=== PATIENT | male | born 1985 | race Caucasian/White ===

== ENCOUNTER 2018-08-11 14:08 | Emergency (ER) | payer BC, OTHER ==
[~2018-08-11] VITALS: Ht 172.7 cm; Wt 72.6 kg
[2018-08-11] MEDS ORDERED: ANTACID SUSP 30 ML UDC (MYLANTA) PO ONE (14:15)
[2018-08-11] MEDS ORDERED: ASPIRIN 81 MG CHEW (CHILDREN'S ASA) PO ONE (14:15)
[2018-08-11] MEDS ORDERED: NITROGLYCERIN 0.4 MG SL TABS BTL 25'S SL PRN (14:15)
[2018-08-11] MEDS ORDERED: LIDOCAINE 2% VISCOUS 15 ML UDC PO ONE (14:15)
--- NOTE | 2018-08-11 14:18 | ED Chest Pain ---
General Chief Complaint: Chest Pain Stated Complaint: CHEST PAIN Source: patient Exam Limitations: no limitations (STEVO SAVAGE APRN) History of Present Illness Date Seen by Provider: Aug 11, 2018 Time Seen by Provider: 14:16 Initial Comments tto ER with epigastric abdominal discomfort constant for 48 hours. No nausea or vomiting. Intermittent shortness of breath. He describes this pain as "hunger pains". He has been able to eat food in food intake does not affect the pain. No fevers or chills. Pain does not radiate. No history of this. No history of acid reflux. He is a nonsmoker. No personal history of heart disease and no immediate family history of heart attacks. Timing/Duration: constant Severity/Quality: moderate Location: epigastric Radiation: no radiation Activities at Onset: none ASA po HEADSTART TEACHER: No NTG SL HEADSTART TEACHER: No Associated Symptoms: No nausea/vomiting (STEVO SAVAGE APRN) Allergies and Home Medications Allergies Coded Allergies: No Known Drug Allergies (Unverified , 08/11/18) Patient Home Medication List Home Medication List Reviewed: Yes (STEVO SAVAGE APRN) Review of Systems Review of Systems Constitutional: see HPI EENTM: No Symptoms Reported Respiratory: See HPI, SOA With Exertion Cardiovascular: See HPI, Chest Pain Gastrointestinal: See HPI; Denies Diarrhea, Denies Nausea Musculoskeletal: no symptoms reported Skin: no symptoms reported Psychiatric/Neurological: No Symptoms Reported Endocrine: No Symptoms Reported (STEVO SAVAGE APRN) Physical Exam Vital Signs Vital Signs - First Documented 08/11/18 14:12 Temp 98.3 Pulse 82 Resp 20 B/P (MAP) 160/104 (122) Pulse Ox 97 O2 Delivery Room Air (IRA ABREU MD) Vital Signs Capillary Refill : (STEVO SAVAGE APRN) Height, Weight, BMI Height: '" Weight: lbs. oz. kg; BMI Method: General Appearance: No Apparent Distress, WD/WN HEENT: PERRL/EOMI, TMs Normal Respiratory: Chest Non Tender, Lungs Clear, Normal Breath Sounds, No Accessory Muscle Use, No Respiratory Distress Cardiovascular: Regular Rate, Rhythm, Normal Peripheral Pulses Gastrointestinal: Normal Bowel Sounds, Non Tender, Soft Neurologic/Psychiatric: Alert, Oriented x3 Skin: Normal Color, Warm/Dry (STEVO SAVAGE APRN) Progress/Results/Core Measures Results/Orders Lab Results Laboratory Tests Test 08/11/18 14:20 Range/Units White Blood Count 7.2 4.3-11.0 10^3/uL Red Blood Count 5.40 4.35-5.85 10^6/uL Hemoglobin 17.0 13.3-17.7 G/DL Hematocrit 46 40-54 % Mean Corpuscular Volume 86 80-99 FL Mean Corpuscular Hemoglobin 32 25-34 PG Mean Corpuscular Hemoglobin Concent 37 H 32-36 G/DL Red Cell Distribution Width 12.5 10.0-14.5 % Platelet Count 330 130-400 10^3/uL Mean Platelet Volume 9.1 7.4-10.4 FL Neutrophils (%) (Auto) 71 42-75 % Lymphocytes (%) (Auto) 20 12-44 % Monocytes (%) (Auto) 9 0-12 % Eosinophils (%) (Auto) 0 0-10 % Basophils (%) (Auto) 0 0-10 % Neutrophils # (Auto) 5.1 1.8-7.8 X 10^3 Lymphocytes # (Auto) 1.5 1.0-4.0 X 10^3 Monocytes # (Auto) 0.6 0.0-1.0 X 10^3 Eosinophils # (Auto) 0.0 0.0-0.3 10^3/uL Basophils # (Auto) 0.0 0.0-0.1 10^3/uL D-Dimer 0.20 0.00-0.49 UG/ML Sodium Level 140 135-145 MMOL/L Potassium Level 3.6 3.6-5.0 MMOL/L Chloride Level 102 98-107 MMOL/L Carbon Dioxide Level 26 21-32 MMOL/L Anion Gap 12 5-14 MMOL/L Blood Urea Nitrogen 11 7-18 MG/DL Creatinine 1.11 0.60-1.30 MG/DL Estimat Glomerular Filtration Rate > 60 BUN/Creatinine Ratio 10 Glucose Level 119 H 70-105 MG/DL Calcium Level 9.8 8.5-10.1 MG/DL Corrected Calcium 8.5-10.1 MG/DL Magnesium Level 2.1 1.8-2.4 MG/DL Total Bilirubin 0.8 0.1-1.0 MG/DL Aspartate Amino Transf (AST/SGOT) 19 5-34 U/L Alanine Aminotransferase (ALT/SGPT) 30 0-55 U/L Alkaline Phosphatase 65 40-136 U/L Myoglobin 44.6 10.0-92.0 NG/ML Troponin I < 0.30 <0.30 NG/ML Total Protein 8.0 6.4-8.2 GM/DL Albumin 4.6 H 3.2-4.5 GM/DL Lipase 30 8-78 U/L (IRA ABREU MD) My Orders Orders - IRA ABREU MD Cbc With Automated Diff (08/11/18 14:11) Magnesium (08/11/18 14:11) Chest 1 View, Ap/Pa Only (08/11/18 14:11) Ekg Tracing (08/11/18 14:11) Cardiac Profile 1 (08/11/18 14:11) Comprehensive Metabolic Panel (08/11/18 14:11) Myoglobin Serum (08/11/18 14:11) O2 (08/11/18 14:11) Monitor-Rhythm Ecg Trace Only (08/11/18 14:11) Lipid Panel (08/12/18 06:00) Saline Lock/Iv-Start (08/11/18 14:11) Aspirin Chewable Tablet (Baby Aspirin Ch (08/11/18 14:15) Ketorolac Injection (Toradol Injection) (08/11/18 14:58) Fibrin Degradation Products (08/11/18 14:58) Ns Iv 1000 Ml (Sodium Chloride 0.9%) (08/11/18 14:59) (IRA ABREU MD) Medications Given in ED Current Medications Medications Dose Ordered Sig/Sintia Route Start Time Stop Time Status Last Admin Dose Admin Al Hydrox/Mg Hydrox/Simethicone 30 ml ONCE ONCE PO 08/11/18 14:15 08/11/18 14:17 DC 08/11/18 14:27 30 ML Aspirin 324 mg ONCE ONCE PO 08/11/18 14:15 08/11/18 14:16 DC 08/11/18 14:27 324 MG Lidocaine HCl 5 ml ONCE ONCE PO 08/11/18 14:15 08/11/18 14:17 DC 08/11/18 14:27 5 ML Sodium Chloride 1,000 ml @ 0 mls/hr Q0M ONCE IV 08/11/18 14:59 08/11/18 15:00 DC 08/11/18 15:05 1,000 MLS/HR (IRA ABREU MD) Vital Signs/I&O 08/11/18 08/11/18 08/11/18 08/11/18 14:12 14:25 14:27 15:04 Temp 98.3 98.3 98.3 Pulse 82 Resp 20 B/P (MAP) 160/104 (122) Pulse Ox 97 O2 Delivery Room Air Room Air (IRA ABREU MD) Progress Progress Note : Progress Note 1455: I have seen and evaluated the patient and agree with above except as indicated. I have reviewed and agree with the plan of care. Patient has central chest discomfort in the region of the xiphoid that he describes as 9 hunger pains. This is been going on since Saturday morning. He had the pain overnight and had to sleep on the couch due to the pain. This did help a little bit but the pain continues today. Denies nausea or vomiting. Labs and x -ray reviewed. I have added d-dimer as the patient is slightly tachycardic in the range of the 80s on my exam. We will also give 1 L normal saline. Toradol 30 mg IV. Monitor patient. 1625: Overall improved. We did discuss that this does not appear to be hard or blood clot related but may be stomach related and he is to follow-up with a surgeon for further evaluation including possible endoscopy. He can follow-up with his doctor as well. I will send a copy of the chart the Dr. Bennett. He is instructed to initiate [id number] omeprazole and can have outpatient cardiology follow-up if indicated. Patient agreed. Discharged home with return precautions. Patient verbalize understanding instructions and agreement with plan. (IRA ABREU MD) Initial ECG Impression Date: Aug 11, 2018 Initial ECG Impression Time: 14:15 Initial ECG Rate: 71 Initial ECG Rhythm: Normal Sinus Initial ECG Comparisson: No Previous ECG Available Comment Sinus rhythm with PVC. Normal axis. No evidence of ST elevation HI. No previous available for comparison. Interpreted by me. (IRA ABREU MD) Diagnostic Imaging Diagonstic Imaging: Xray Plain Films/CT/US/NM/MRI: chest Comments [facility]IA [facility]. [place], [place] NAME: MILLY CAMPBELL [facility] REC#: [id number] PT STATUS: REG ER : 1985 PHYSICIAN: IRA ABREU MD ADMIT DATE: 08/11/18/ER Draft Date of Exam:08/11/18 CHEST 1 VIEW, AP/PA ONLY INDICATION: Chest pain. EXAMINATION: Portable chest at 2:34 PM. FINDINGS: The heart size and pulmonary vascularity are normal. The lungs are clear. There are no effusions or pneumothoraces. IMPRESSION: Negative chest. Dictated on workstation # [id number] Dict: 08/11/18 1451 Trans: 08/11/18 1453 [id number] Interpreted by: IRA GEE MD Electronically signed by: (IRA ABREU MD) Departure Impression Primary Impression: Epigastric abdominal pain Additional Impression: Chest pain Qualified Codes: R07.9 - Chest pain, unspecified Disposition: 01 HOME, SELF-CARE Condition: Improved Departure-Patient Inst. Decision time for Depature: 16:26 (IRA ABREU MD) Referrals: RANJEET BENNETT DO (PCP) Primary Care Physician LINDA WAHL BRETT D DO JENKINS, XAVIER M MD KIDO, TAKAAKI MD Patient Instructions: Chest Pain (DC), Gastric Ulcer (DC) Add. Discharge Instructions: All discharge instructions reviewed with patient and/or family. Voiced understanding. You should start [id number] omeprazole 20 mg take one tab daily for 2 weeks. You may extend this to 6 weeks if needed. You should follow-up with a surgeon listed or of your choice for further evaluation to include possible upper endoscopy (scope). Eat a light diet and avoid spicy foods for the next several days at least. Follow-up with your doctor this week for recheck and further evaluation. Return for worsening, fever, vomiting, weakness, breathing problems, chest pain, sweating or other concerns as needed. Images Torso/Trunk 1 - Other-See Progress Note (STEVO SAVAGE APRN) Copy Copies To 1: RANJEET BENNETT PETER J APRN Aug 11, 2018 14:18 IRA ABREU MD Aug 11, 2018 15:08
[2018-08-11 14:27] LABS: BASOPHILS % (AUTO) 0 % (0-10); EOSINOPHILS % (AUTO) 0 % (0-10); HEMATOCRIT 46 % (40-54); LYMPHOCYTES # (AUTO) 1.5 X 10^3 (1.0-4.0); LYMPHOCYTES % (AUTO) 20 % (12-44); MEAN CORPUSCULAR HEMOGLOBIN 32 PG (25-34); MEAN CORPUSCULAR HGB CONC 37 G/DL (32-36); MEAN CORPUSCULAR VOLUME 86 FL (80-99); MEAN PLATELET VOLUME 9.1 FL (7.4-10.4); MONOCYTES # (AUTO) 0.6 X 10^3 (0.0-1.0); MONOCYTES % (AUTO) 9 % (0-12); NEUTROPHILS # (AUTO) 5.1 X 10^3 (1.8-7.8); NEUTROPHILS % (AUTO) 71 % (42-75); PLATELET COUNT 330 10^3/uL (130-400); RED CELL DISTRIBUTION WIDTH 12.5 % (10.0-14.5); WHITE BLOOD COUNT 7.2 10^3/uL (4.3-11.0)
[2018-08-11 14:45] LABS: ALANINE AMINOTRANSFERASE 30 U/L (0-55); ALBUMIN 4.6 GM/DL (3.2-4.5); ALKALINE PHOSPHATASE 65 U/L (40-136); BILIRUBIN,TOTAL 0.8 MG/DL (0.1-1.0); BUN/CREATININE RATIO 10; CALCIUM 9.8 MG/DL (8.5-10.1); CARBON DIOXIDE 26 MMOL/L (21-32); CHLORIDE 102 MMOL/L (98-107); CREATININE SERUM 1.11 MG/DL (0.60-1.30); GFR ESTIMATED > 60; GLUCOSE 119 MG/DL (70-105); MAGNESIUM 2.1 MG/DL (1.8-2.4); POTASSIUM 3.6 MMOL/L (3.6-5.0); SODIUM 140 MMOL/L (135-145)
[2018-08-11 14:52] LABS: MYOGLOBIN SERUM 44.6 NG/ML (10.0-92.0)
--- NOTE | 2018-08-11 14:53 | Diagnostic Imaging Report ---
INDICATION: Chest pain. EXAMINATION: Portable chest at 2:34 PM. FINDINGS: The heart size and pulmonary vascularity are normal. The lungs are clear. There are no effusions or pneumothoraces. IMPRESSION: Negative chest. Dictated by: Dictated on workstation # [id number]
[2018-08-11] MEDS ORDERED: KETOROLAC 30 MG/ML VIAL IVP STA (14:58)
[2018-08-11] MEDS ORDERED: NS IV 1000 ML 1,000 ML IV ONE (14:59)
[2018-08-11 16:44] VITALS: BP 128/93
== END 2018-08-11 16:45 | disposition home or self-care (01) ==
LOC: EDUNIT# 14:08 → ER 14:08
DX: R10.13 Epigastric pain (principal); R07.9 Chest pain, unspecified
CPT/HCPCS: 36415; 71045; 80053; 83690; 83735; 83874; 84484; 85025; 85379; 93005; 93041

== ENCOUNTER 2018-08-22 06:29 | Outpatient (CLI) | payer BC ==
[~2018-08-22] VITALS: Ht 172.7 cm; Wt 78.5 kg
[2018-08-22] MEDS ORDERED: OMEP20TA7 PO (10:28)
== END 2018-08-22 10:30 | disposition home or self-care (01) ==
LOC: PREOP 06:29
PROVIDERS: ATTEND Surgery
DX: Z01.818 Encounter for other preprocedural examination (principal)

== ENCOUNTER 2018-08-26 11:49 | Day surgery (SDC) | payer BC ==
[~2018-08-26] VITALS: Ht 172.7 cm; Wt 78.5 kg
[~2018-08-26 11:49] MED LIST: OMEP20TA7 PO
[2018-08-26] MEDS ORDERED: NS IV 500 ML 500 ML IV PRN (12:03)
[2018-08-26] MEDS ORDERED: NS IV 500 ML 500 ML ONE (12:08)
[2018-08-26] MEDS ORDERED: fentaNYL INJECTION 100 MCG/2 ML AMP IVP ONE (12:15)
[2018-08-26] MEDS ORDERED: HURRICAINE EXT TUBE (BENZOCAINE) XX PRN (12:15)
[2018-08-26] MEDS ORDERED: MIDAZOLAM 2 MG/2 ML (VERSED) VIAL IVP ONE (12:15)
[2018-08-26 12:33] VITALS: BP 140/94
[2018-08-26] MEDS ORDERED: LIDOCAINE JELLY 2% 6 ML SYRINGE ONE (13:10)
[2018-08-26] MEDS ORDERED: fentaNYL INJECTION 100 MCG/2 ML AMP ONE (13:10)
[2018-08-26] MEDS ORDERED: HURRICAINE EXT TUBE (BENZOCAINE) ONE (13:11)
[2018-08-26] MEDS ORDERED: MIDAZOLAM 2 MG/2 ML (VERSED) VIAL ONE ×5 (13:11→13:30)
[2018-08-26 13:55] VITALS: BP 124/72
[2018-08-26] MEDS ORDERED: LIDOCAINE JELLY 2% 6 ML SYRINGE TOP ONE (14:00)
--- NOTE | 2018-08-26 14:10 | Conscious Sedation/ASA ---
Conscious Sedation Pre-Proced Time 13:00 ASA Score 2 For ASA 3 and 4: Consider anesthesia and medical clearance. Also, for patients with a history of failed moderate sedation consider anesthesia. Airway Lungs Heart ASA score ASA 1: a normal healthy patient ASA 2: a patient with a mild systemic disease (mid diabetes, controlled hypertension, obesity ASA 3: a patient with a severe systemic disease that limits activity (angina , COPD, prior Myocardial infarction) ASA 4: a patient with an incapacitating disease that is a constant threat to life (CHF, renal failure) ASA 5: a moribund patient not expected to survive 24 hrs. (ruptured aneurysm) ASA 6: a declared brain patient whose organs are being harvested. For emergent operations, add the letter E after the classification Mallampati Classification Grade 2 Sedation Plan Analgesia, Amnesia, Plan communicated to team members, Discussed options with patient/fam, Discussed risks with patient/fam The patient is an appropriate candidate to undergo the planned procedure, sedation, and anesthesia. The patient immediately re-assessed prior to indication. DAVID BUTLER MD Aug 26, 2018 14:10
--- NOTE | 2018-08-26 14:12 | Progress Note-Pre Operative ---
Pre-Operative Progress Note H&P Reviewed The H&P was reviewed, patient examined and no changes noted. Date Seen by Provider: Aug 26, 2018 Time Seen by Provider: 13:00 Date H&P Reviewed: Aug 26, 2018 Time H&P Reviewed: 13:00 Pre-Operative Diagnosis: DAVID MUNOZ MD Aug 26, 2018 14:12
[2018-08-26] MEDS ORDERED: HYDROcodone/APAP 5 MG/325 MG (LORTAB) TAB PO PRN (14:15)
[2018-08-26] MEDS ORDERED: ACETAMINOPHEN 325 MG TABLET PO PRN (14:15)
[2018-08-26] MEDS ORDERED: morphine INJ 10 MG/ML 1ML (SYR OR VIAL) IV PRN (14:15)
[2018-08-26] MEDS ORDERED: ONDANSETRON 4 MG/2 ML (SDV) Z0FRAN IV PRN (14:15)
--- NOTE | 2018-08-26 14:18 | Progress Note-Post Operative ---
Post-Operative Progess Note Surgeon (s)/Gauge Machine Operator (s) Surgeon DAVID BUTLER MD Gauge Machine Operator: none Pre-Operative Diagnosis GERD Post-Operative Diagnosis reflux esophagitis(stage 2), small HH(1.5), moderate gastritis. Procedure & Operative Findings Date of Procedure 08/26/18 Procedure Performed/Findings EGD with bx. Anesthesia Type CS Estimated Blood Loss Estimated blood loss (mL): minimal Specimens/Packing Specimens Removed GE jxn, antrum DAVID BUTLER MD Aug 26, 2018 14:18
[2018-08-26] MEDS ORDERED: PANT40TA2 PO (14:19)
--- NOTE | 2018-08-26 14:20 | Discharge Inst-Surgical ---
D/C Lap Instructions-KIDO New, Converted, or Re-Newed RX: RX on Chart Follow Up PRN Activity as tolerated High Fiber Diet 25g or more per day Avoid Alcohol, Caffeine, Spicy [place] and Acid foods. Drink 64 fluid oz or more of fluids per day. Symptoms to Report: Fever over 101 degree F, Nausea/Vomiting If any problems/questions: Contact your physician or go to Emergency Room DAVID BUTLER MD Aug 26, 2018 14:20
[2018-08-26 14:25] VITALS: BP 125/77
[2018-08-26 15:10] VITALS: BP 125/77
--- NOTE | 2018-08-26 15:52 | OPERATIVE REPORT ---
DATE OF SERVICE: 08/26/2018 ATTENDING PRIMARY CARE PHYSICIAN: Dr. Bennett. PREOPERATIVE DIAGNOSIS: Gastroesophageal reflux disease. POSTOPERATIVE DIAGNOSES: Reflux esophagitis stage II, small hiatal hernia approximately 1.5 cm in size, moderate gastritis with a small superficial erosions throughout the antrum of the stomach, pylorus and duodenum appeared normal. PROCEDURE: EGD with biopsy. SURGEON: David Butler MD ANESTHESIA: Conscious sedation. ESTIMATED BLOOD LOSS: Minimal. FINDINGS: Reflux esophagitis stage II, small hiatal hernia 1.5 cm in size, moderate severity gastritis towards the stomach antrum with multiple small erosions consistent with a significant gastritis. No formal ulcerations. The pylorus and duodenum appeared normal with no distal obstructions. DISPOSITION: The patient tolerated the procedure well. INDICATIONS: The patient is a 33-year-old male with epigastric burning sensation. He reports that he has had milder episodes multiple times in the past; however, approximately 3 weeks ago, he had a severe episode, which caused shortness of breath and he went to the Emergency Department where a cardiac workup was performed and found not to be negative. He reports that he has had some issues with reflux and regurgitation; however, this has not been severe. 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 He does drink a significant amount of caffeinated beverages as well. He does not smoke or take in alcohol. DESCRIPTION OF PROCEDURE: The patient was brought to the endoscopy suite, laid in the left lateral decubitus position. After adequate IV pain and sedating medications and conscious sedation anesthesia, the mouthpiece was applied. Endoscope was placed in the mouth, visualizing the pharynx and hypopharyngeal region. Vocal cords, epiglottis and vallecula identified and appeared to normal. The endoscope was then gently intubated in the esophageal opening and esophagus insufflated. The endoscope was then advanced through the first, second and third portions of the esophagus at the level of the GE junction, a reflux esophagitis, stage 2 identified. There were no ulcers or strictures identified in this region. A biopsy was taken with forceps with visualization of good hemostasis. The endoscope was then advanced in the stomach and endoscope retroflexed, visualizing a small hiatal hernia approximately 1.5 cm in size. There was also moderate severity gastritis, which was with multiple prepyloric erosions consistent with hyperacidemia. There were no formal ulcerations. A biopsy was taken of one of these areas with forceps with visualization of good hemostasis. The endoscope was then advanced to the pylorus, into the first and second portion of the duodenum, which appeared normal with no ulcers or any distal obstructions. The endoscope was then slowly withdrawn with taking a second look and suctioning of residual air with no additional findings. The patient tolerated the procedure well. It appears that he does have hyperacidemia most likely secondary to stress mediated as well as caffeinated beverages as risk factors. We will recommend conservative management with the necessary lifestyle and diet accommodation including small and more frequent meals, avoidance of eating at night as well as head elevation while lying supine. He will also need to proceed with a caffeine cessation as well as stress management techniques. We will proceed with a trial of pantoprazole 40 mg daily as well. Job ID: [id number] DocumentID: [id number] Dictated Date: 08/26/2018 13:48:42 Toy Maker Date: 08/26/2018 15:52:34 Dictated By: DAVID BUTLER MD
== END 2018-08-26 15:10 | disposition home or self-care (01) ==
LOC: ENDO 11:49
PROVIDERS: ATTEND Surgery
DX: K21.0 Gastro-esophageal reflux disease with esophagitis (principal); K44.9 Diaphragmatic hernia without obstruction or gangrene; K29.70 Gastritis, unspecified, without bleeding

== ENCOUNTER 2019-03-05 06:35 | Emergency (ER) | payer BC ==
[~2019-03-05] VITALS: Ht 172.7 cm; Wt 74.8 kg
[~2019-03-05 06:35] MED LIST changes: +PANT40TA2 PO
--- NOTE | 2019-03-05 06:45 | NUR ---
pt here by self. pt alert gcs 15. in que pt shortly after me. pt got a rash left arm last noc. pt now says rash is on right leg and also c/o its on the " genital area". pt says genital area ios swollen as well. relates rash itches. pt denies pain. denies dyspnea and no acute sighns of dyspnea noted. i did not assess rash or the genital area. done que robert at 0651.
--- NOTE | 2019-03-05 06:57 | NUR ---
ua to lab by
--- NOTE | 2019-03-05 07:00 | ED General ---
General Stated Complaint: SCROTUM RED & SWOLLEN Source of Information: Patient Exam Limitations: No Limitations History of Present Illness Date Seen by Provider: Mar 05, 2019 Time Seen by Provider: 06:40 Initial Comments This 34-year-old gentleman presents to the emergency room with a pruritic, swollen, erythematous rash involving his extremities and genitals that started yesterday. He has been clearing out brush on his property. The penis and scrotum are significantly swollen. They are very itchy but not painful. Allergies and Home Medications Allergies Coded Allergies: No Known Drug Allergies (Unverified , 08/22/18) Home Medications Pantoprazole Sodium 40 Mg Tablet.dr, 40 MG PO DAILY Prescribed by: DAVID BUTLER on 08/26/18 1419 Prednisone 10 Mg Tab.ds.pk, 10 MG PO UD Take 4 daily for 3 days, then 2 daily for 3 days, then 1 daily x 3 days. Prescribed by: PAUL LACEY on 03/05/19 0701 Patient Home Medication List Home Medication List Reviewed: Yes Review of Systems Review of Systems Constitutional: no symptoms reported EENTM: no symptoms reported Respiratory: no symptoms reported Cardiovascular: no symptoms reported Gastrointestinal: no symptoms reported Genitourinary: see HPI Musculoskeletal: no symptoms reported Skin: see HPI Psychiatric/Neurological: No Symptoms Reported Hematologic/Lymphatic: No Symptoms Reported Immunological/Allergic: see HPI Past Uilxqxm-Hbzbfh-Mkkltf Hx Past Med/Social Hx: Reviewed and Corrections made Patient Social History Type Used: Cigarettes Recent Foreign Travel: No Contact w/Someone Who Travel: No Recent Hopitalizations: No Seasonal Allergies Seasonal Allergies: No Past Medical History Surgeries: No Respiratory: No Cardiac: No Neurological: No Reproductive Disorders: No Sexually Transmitted Disease: No HIV/AIDS: No Genitourinary: No Gastrointestinal: No Gastroesophageal Reflux Musculoskeletal: No Endocrine: No HEENT: No Loss of Vision: Bilateral Hearing Impairment: Denies Cancer: No Psychosocial: No Integumentary: No Adverse Reaction/Blood Tranf: No Physical Exam Vital Signs Vital Signs - First Documented 03/05/19 06:45 Temp 97.7 Pulse 76 Resp 16 B/P (MAP) 142/100 (114) Pulse Ox 95 O2 Delivery Room Air Capillary Refill : Height, Weight, BMI Height: 5'8.00" Weight: 173lbs. 0.0oz. 78.263734dr; 26.3 BMI Method:Stated General Appearance: No Apparent Distress, WD/WN HEENT: PERRL/EOMI, Normal ENT Inspection Respiratory: Lungs Clear, Normal Breath Sounds, No Accessory Muscle Use Cardiovascular: Regular Rate, Rhythm, No Edema, No Murmur Extremity: Normal Inspection, No Pedal Edema Neurologic/Psychiatric: Alert, Oriented x3, No Motor/Sensory Deficits, Normal Mood/Affect, auto body painter II-XII Norm as Tested Skin: Warm/Dry, Rash (slightly raised pruritic erythematous patchy rash on the extremities, penis, and scrotum) Progress/Results/Core Measures Suspected Sepsis SIRS Temperature: Pulse: Respiratory Rate: Blood Pressure / Mean: Results/Orders Lab Results Laboratory Tests Test 03/05/19 06:57 Range/Units Urine Color YELLOW Urine Clarity CLEAR Urine pH 5 5-9 Urine Specific Lopez 1.025 H 1.016-1.022 Urine Protein NEGATIVE NEGATIVE Urine Glucose (UA) NEGATIVE NEGATIVE Urine Ketones NEGATIVE NEGATIVE Urine Nitrite NEGATIVE NEGATIVE Urine Bilirubin NEGATIVE NEGATIVE Urine Urobilinogen NORMAL NORMAL MG/DL Urine Leukocyte Esterase NEGATIVE NEGATIVE Urine RBC (Auto) 2+ H NEGATIVE Urine RBC 0-2 /HPF Urine WBC RARE /HPF Urine Squamous Epithelial Cells RARE /HPF Urine Crystals NONE /LPF Urine Bacteria NEGATIVE /HPF Urine Casts PRESENT /LPF Urine Hyaline Casts RARE /LPF Urine Mucus NEGATIVE /LPF Urine Culture Indicated NO My Orders Orders - PAUL YE MD Ua Culture If Indicated (03/05/19 06:40) Vital Signs/I&O 03/05/19 03/05/19 06:45 07:15 Temp 97.7 97.7 Pulse 76 76 Resp 16 16 B/P (MAP) 142/100 (114) 142/100 (114) Pulse Ox 95 95 O2 Delivery Room Air Room Air Capillary Refill : Departure Impression Primary Impression: Allergic dermatitis due to poison anabel Disposition: 01 HOME, SELF-CARE Condition: Improved Departure-Patient Inst. Decision time for Depature: 06:50 Referrals: RANJEET WINCHESTER DO (PCP/Family) Primary Care Physician Patient Instructions: Poison Anabel Add. Discharge Instructions: Complete the entire prednisone taper to calm down the poison anabel. Finishing out the entire 9 days will help prevent rebound symptoms. Take prednisone early in the day with food or milk to avoid stomach upset and continue your antacid medication. You may use topical anti-itch products such as lidocaine spray or lotion, topical Benadryl (diphenhydramine), hydrocortisone cream, calamine, etc. A cool cloth or ice may also help. You may use antihistamines as well. Nondrowsy antihistamines may include loratadine (generic Claritin) or cetirizine (generic Zyrtec). Alternatively, Benadryl (diphenhydramine) may be used but may cause drowsiness. Benadryl may be helpful to take at night. Return to care if you have worsening problems or concerns. Scripts Prednisone (Prednisone) 10 Mg Tab.ds.pk 10 MG PO UD, #21 EA Take 4 daily for 3 days, then 2 daily for 3 days, then 1 daily x 3 days. Prov: PAUL YE MD 03/05/19 PAUL YE MD Mar 05, 2019 07:00
[2019-03-05] MEDS ORDERED: PRED10TA22 PO (07:01)
[2019-03-05 07:02] LABS: BILIRUBIN,URINE NEGATIVE (NEGATIVE); CLARITY,URINE CLEAR; COLOR,URINE YELLOW; GLUCOSE, URINE (UA) NEGATIVE (NEGATIVE); KETONES,URINE NEGATIVE (NEGATIVE); LEUKOCYTE ESTERASE ,URINE NEGATIVE (NEGATIVE); NITRITE,URINE NEGATIVE (NEGATIVE); PH,URINE 5 (5-9); PROTEIN,URINE NEGATIVE (NEGATIVE); UROBILINOGEN,URINE NORMAL (NORMAL)
[2019-03-05 07:13] LABS: BACTERIA,URINE NEGATIVE /HPF; HYALINE CASTS, URINE RARE /LPF; RBC,URINE 0-2 /HPF; SQUAMOUS EPITHELIAL CELL,UR RARE /HPF; WBC,URINE RARE /HPF
[2019-03-05 07:15] VITALS: BP 142/100
--- NOTE | 2019-03-05 07:15 | NUR ---
d/c instructions to pt. told to read all papers. paper script given. pt left ambulatory by self. pt knows f/u. i went over the handtyped by information on the chart. pt had no iv.
== END 2019-03-05 07:15 | disposition home or self-care (01) ==
LOC: EDUNIT# 06:35 → ER 06:39
DX: L23.7 Allergic contact dermatitis due to plants, except food (principal); K21.9 Gastro-esophageal reflux disease without esophagitis; Z79.52 Long term (current) use of systemic steroids
CPT/HCPCS: 81000

== ENCOUNTER 2020-09-19 13:55 | Emergency (ER) | payer SELFPAY ==
[~2020-09-19] VITALS: Ht 172.8 cm; Wt 81.6 kg
[~2020-09-19 13:55] MED LIST changes: +PRED10TA22 PO
[2020-09-19] MEDS ORDERED: ASPIRIN 81 MG CHEW (CHILDREN'S ASA) PO ONE (14:15)
[2020-09-19] MEDS ORDERED: FAMOTIDINE 20MG/2ML IV (PEPCID) IV STA (14:23)
--- NOTE | 2020-09-19 14:25 | ED Chest Pain ---
General Chief Complaint: Chest Pain Stated Complaint: CHEST PAIN AND HEAVYNESS Nursing Triage Note: PT AMBULATE TO ROOM 05 WITH C/O CHEST PAIN AND PRESSURE X2 DAYS. PT REPORTS PAIN WAS WORSE LAST NIGHT AND HE CALLED PCP THIS MORNING. PT REPORTS PCP INSTRUCTED PT TO COME TO ED. PT REPORTS HX OF CHEST PAIN RELATED TO HIS GALLBLADDER. PT REPORTS PAIN IS WORSE WHEN HE MOVES HIS ARMS CLOSE TOGETHER. Nursing Sepsis Screen: No Definite Risk Source: patient Exam Limitations: no limitations History of Present Illness Date Seen by Provider: Sep 19, 2020 Time Seen by Provider: 14:23 Initial Comments To ER with reports of central chest pain described as pressure for 2 days. Is better when his arms are flexed across his chest and worse when they are extended out. No shortness of breath no fever no chills no cough. No palpitations or lightheadedness. Timing/Duration: changing over time Severity/Quality: moderate Radiation: no radiation Activities at Onset: none ASA po GRATED CHEESE MAKER: No NTG SL GRATED CHEESE MAKER: No Associated Symptoms: denies symptoms Allergies and Home Medications Allergies Coded Allergies: No Known Drug Allergies (Unverified , 08/22/18) Home Medications Pantoprazole Sodium 40 Mg Tablet.dr, 40 MG PO DAILY Prescribed by: DAVID BUTLER on 08/26/18 1419 Prednisone 10 Mg Tab.ds.pk, 10 MG PO UD Take 4 daily for 3 days, then 2 daily for 3 days, then 1 daily x 3 days. Prescribed by: PAUL LACEY on 03/05/19 0701 Patient Home Medication List Home Medication List Reviewed: Yes Review of Systems Review of Systems Constitutional: see HPI EENTM: No Symptoms Reported Respiratory: See HPI Cardiovascular: See HPI, Chest Pain Gastrointestinal: No Symptoms Reported Genitourinary: No Symptoms Reported Musculoskeletal: no symptoms reported Skin: no symptoms reported Psychiatric/Neurological: No Symptoms Reported Endocrine: No Symptoms Reported Hematologic/Lymphatic: No Symptoms Reported Past Ccncpmy-Xnmyif-Gunhlp Hx Patient Social History Alcohol Use: Denies Use Recreational Drug Use: No Smoking Status: Never a Smoker Type Used: Cigarettes 2nd Hand Smoke Exposure: No Recent Foreign Travel: No Contact w/Someone Who Travel: No Recent Infectious Disease Expo: No Recent Hopitalizations: No Physical Abuse: No Sexual Abuse: No Mistreated: No Fear: No Seasonal Allergies Seasonal Allergies: No Past Medical History Surgeries: Yes (PILONIDAL CYST) Respiratory: No Cardiac: No Neurological: No Reproductive Disorders: No Sexually Transmitted Disease: No HIV/AIDS: No Genitourinary: No Gastrointestinal: Yes Gastroesophageal Reflux Musculoskeletal: No Endocrine: No HEENT: No Loss of Vision: Bilateral Hearing Impairment: Denies Cancer: No Psychosocial: No Integumentary: No Blood Disorders: No Adverse Reaction/Blood Tranf: No Physical Exam Vital Signs Vital Signs - First Documented 09/19/20 14:09 Temp 35.6 Pulse 82 Resp 17 B/P (MAP) 156/101 (119) O2 Delivery Room Air Capillary Refill : Less Than 3 Seconds Height, Weight, BMI Height: 5'8.00" Weight: 165lbs. 0.0oz. 74.976259xg; 27.00 BMI Method:Stated General Appearance: No Apparent Distress, WD/WN Neck: Full Range of Motion, Normal Inspection Respiratory: Normal Breath Sounds, No Accessory Muscle Use, No Respiratory Distress Cardiovascular: Regular Rate, Rhythm, Normal Peripheral Pulses Gastrointestinal: Normal Bowel Sounds, Non Tender, Soft Extremity: Normal Capillary Refill, Normal Inspection Neurologic/Psychiatric: Alert, Oriented x3 Skin: Normal Color, Warm/Dry Progress/Results/Core Measures Results/Orders Lab Results Laboratory Tests Test 09/19/20 14:19 Range/Units White Blood Count 7.7 4.3-11.0 10^3/uL Red Blood Count 5.45 4.30-5.52 10^6/uL Hemoglobin 17.1 13.3-17.7 g/dL Hematocrit 48 40-54 % Mean Corpuscular Volume 88 80-99 fL Mean Corpuscular Hemoglobin 31 25-34 pg Mean Corpuscular Hemoglobin Concent 36 32-36 g/dL Red Cell Distribution Width 12.1 10.0-14.5 % Platelet Count 315 130-400 10^3/uL Mean Platelet Volume 8.8 L 9.0-12.2 fL Immature Granulocyte % (Auto) 0 % Neutrophils (%) (Auto) 57 42-75 % Lymphocytes (%) (Auto) 30 12-44 % Monocytes (%) (Auto) 12 0-12 % Eosinophils (%) (Auto) 1 0-10 % Basophils (%) (Auto) 0 0-10 % Neutrophils # (Auto) 4.4 1.8-7.8 10^3/uL Lymphocytes # (Auto) 2.3 1.0-4.0 10^3/uL Monocytes # (Auto) 0.9 0.0-1.0 10^3/uL Eosinophils # (Auto) 0.1 0.0-0.3 10^3/uL Basophils # (Auto) 0.0 0.0-0.1 10^3/uL Immature Granulocyte # (Auto) 0.0 0.0-0.1 10^3/uL Prothrombin Time 13.9 12.2-14.7 SEC INR Comment 1.0 0.8-1.4 Activated Partial Thromboplast Time 27 24-35 SEC Sodium Level 138 135-145 MMOL/L Potassium Level 4.2 3.6-5.0 MMOL/L Chloride Level 101 98-107 MMOL/L Carbon Dioxide Level 28 21-32 MMOL/L Anion Gap 9 5-14 MMOL/L Blood Urea Nitrogen 16 7-18 MG/DL Creatinine 1.12 0.60-1.30 MG/DL Estimat Glomerular Filtration Rate > 60 BUN/Creatinine Ratio 14 Glucose Level 101 70-105 MG/DL Calcium Level 9.2 8.5-10.1 MG/DL Corrected Calcium 8.8 8.5-10.1 MG/DL Magnesium Level 2.0 1.6-2.4 MG/DL Total Bilirubin 0.6 0.1-1.0 MG/DL Aspartate Amino Transf (AST/SGOT) 34 5-34 U/L Alanine Aminotransferase (ALT/SGPT) 73 H 0-55 U/L Alkaline Phosphatase 54 40-136 U/L Myoglobin 47.8 10.0-92.0 NG/ML Troponin I < 0.028 <0.028 NG/ML Total Protein 7.7 6.4-8.2 GM/DL Albumin 4.5 3.2-4.5 GM/DL Lipase 32 8-78 U/L My Orders Orders - STEVO SAVAGE TUFTER HAND Cbc With Automated Diff (09/19/20 14:15) Magnesium (09/19/20 14:15) Chest 1 View, Ap/Pa Only (09/19/20 14:15) Ekg Tracing (09/19/20 14:15) Comprehensive Metabolic Panel (09/19/20 14:15) Myoglobin Serum (09/19/20 14:15) Protime With Inr (09/19/20 14:15) Partial Thromboplastin Time (09/19/20 14:15) O2 (09/19/20 14:15) Monitor-Rhythm Ecg Trace Only (09/19/20 14:15) Lipid Panel (09/20/20 06:00) Ed Iv/Invasive Line Start (09/19/20 14:15) Troponin I (09/19/20 14:15) Aspirin Chewable Tablet (Baby Aspirin Ch (09/19/20 14:15) Lipase (09/19/20 14:16) Ketorolac Injection (Toradol Injection) (09/19/20 15:00) Medications Given in ED Current Medications Medications Dose Ordered Sig/Sintia Route Start Time Stop Time Status Last Admin Dose Admin Al Hydrox/Mg Hydrox/Simethicone 30 ml ONCE ONCE PO 09/19/20 14:30 09/19/20 14:31 DC 09/19/20 14:30 30 ML Aspirin 324 mg ONCE ONCE PO 09/19/20 14:15 09/19/20 14:17 DC 09/19/20 14:23 324 MG Lidocaine HCl 15 ml ONCE ONCE PO 09/19/20 14:30 09/19/20 14:31 DC 09/19/20 14:30 15 ML Ondansetron HCl 4 mg ONCE ONCE IVP 09/19/20 14:30 09/19/20 14:31 DC 09/19/20 14:30 4 MG Vital Signs/I&O 09/19/20 09/19/20 14:09 14:13 Temp 35.6 Pulse 82 Resp 17 B/P (MAP) 156/101 (119) O2 Delivery Room Air Room Air Blood Pressure Mean: 119 Departure Impression Primary Impression: Chest pain Disposition: 01 HOME, SELF-CARE Condition: Stable Departure-Patient Inst. Decision time for Depature: 15:06 Referrals: RANJEET WINCHESTER DO (PCP/Family) Primary Care Physician Patient Instructions: Chest Pain (DC) Add. Discharge Instructions: 1. Return to ER for any concerns 1. Return to ER for any concerns. Use Tylenol and ibuprofen for pain control. Follow-up with Dr. Winchester later this week. All discharge instructions reviewed with patient and/or family. Voiced understanding. STEVO SAVAGE APRN Sep 19, 2020 14:25
[2020-09-19] MEDS ORDERED: LIDOCAINE 2% VISCOUS 15 ML UDC PO ONE (14:30)
[2020-09-19] MEDS ORDERED: ONDANSETRON 4 MG/2 ML (SDV) Z0FRAN IVP ONE (14:30)
[2020-09-19] MEDS ORDERED: ANTACID SUSP 30 ML UDC (MYLANTA) PO ONE (14:30)
[2020-09-19 14:35] LABS: BASOPHILS % (AUTO) 0 % (0-10); EOSINOPHILS # (AUTO) 0.1 10^3/uL (0.0-0.3); EOSINOPHILS % (AUTO) 1 % (0-10); HEMATOCRIT 48 % (40-54); HEMOGLOBIN 17.1 g/dL (13.3-17.7); LYMPHOCYTES # (AUTO) 2.3 10^3/uL (1.0-4.0); LYMPHOCYTES % (AUTO) 30 % (12-44); MEAN CORPUSCULAR HEMOGLOBIN 31 pg (25-34); MEAN CORPUSCULAR HGB CONC 36 g/dL (32-36); MEAN CORPUSCULAR VOLUME 88 fL (80-99); MEAN PLATELET VOLUME 8.8 fL (9.0-12.2); MONOCYTES # (AUTO) 0.9 10^3/uL (0.0-1.0); MONOCYTES % (AUTO) 12 % (0-12); NEUTROPHILS # (AUTO) 4.4 10^3/uL (1.8-7.8); NEUTROPHILS % (AUTO) 57 % (42-75); PLATELET COUNT 315 10^3/uL (130-400); WHITE BLOOD COUNT 7.7 10^3/uL (4.3-11.0)
--- NOTE | 2020-09-19 14:45 | Diagnostic Imaging Report ---
INDICATION: Chest pain. COMPARISON: 08/11/2018. FINDINGS: A single frontal view of the chest demonstrates normal heart size and pulmonary vascularity. The lungs are well aerated and clear. No large pleural effusion or pneumothorax is seen. The visualized osseous structures show no acute abnormalities. IMPRESSION: No acute cardiopulmonary process. Dictated by: Dictated on workstation # [id number]
[2020-09-19 14:47] LABS: ALBUMIN 4.5 GM/DL (3.2-4.5)
[2020-09-19 14:48] LABS: CHLORIDE 101 MMOL/L (98-107); POTASSIUM 4.2 MMOL/L (3.6-5.0); SODIUM 138 MMOL/L (135-145)
[2020-09-19 14:49] LABS: CALCIUM 9.2 MG/DL (8.5-10.1)
[2020-09-19 14:50] LABS: GLUCOSE 101 MG/DL (70-105); TOTAL PROTEIN 7.7 GM/DL (6.4-8.2)
[2020-09-19 14:51] LABS: CARBON DIOXIDE 28 MMOL/L (21-32)
[2020-09-19 14:52] LABS: BILIRUBIN,TOTAL 0.6 MG/DL (0.1-1.0)
[2020-09-19 14:53] LABS: ALKALINE PHOSPHATASE 54 U/L (40-136); CREATININE SERUM 1.12 MG/DL (0.60-1.30); GFR ESTIMATED > 60; PROTHROMBIN TIME PATIENT 13.9 SEC (12.2-14.7)
[2020-09-19 14:54] LABS: BUN/CREATININE RATIO 14
[2020-09-19 14:56] LABS: ALANINE AMINOTRANSFERASE 73 U/L (0-55)
[2020-09-19 14:58] LABS: LIPASE 32 U/L (8-78)
[2020-09-19] MEDS ORDERED: KETOROLAC 30 MG/ML VIAL IVP ONE (15:00)
[2020-09-19 15:19] VITALS: BP 137/81
== END 2020-09-19 15:19 | disposition home or self-care (01) ==
LOC: EDUNIT# 13:55 → ER 13:59
DX: R07.9 Chest pain, unspecified (principal); K21.9 Gastro-esophageal reflux disease without esophagitis; Z79.52 Long term (current) use of systemic steroids
CPT/HCPCS: 36415; 71045; 80053; 83690; 83735; 83874; 84484; 85025; 85610; 85730; 93005; 93041

== ENCOUNTER 2020-10-11 05:34 | Outpatient (RCR) | payer BC ==
[~2020-10-11] VITALS: Ht 175.3 cm; Wt 85.2 kg
[~2020-10-11 05:34] MED LIST changes: +PANT40TA52 PO
== END 2020-10-11 09:46 | disposition home or self-care (01) ==
LOC: PREOP 05:34
PROVIDERS: ATTEND Surgery
DX: Z01.818 Encounter for other preprocedural examination (principal); K82.8 Other specified diseases of gallbladder; Z20.822 Contact with and (suspected) exposure to COVID-19
CPT/HCPCS: 87635

== ENCOUNTER 2020-10-13 09:11 | Day surgery (SDC) | payer BC ==
[~2020-10-13] VITALS: Ht 175 cm; Wt 85.2 kg
[2020-10-13] VITALS (12 sets, daily range): BP systolic 114–140; BP diastolic 69–91
--- NOTE | 2020-10-13 09:37 | Progress Note-Pre Operative ---
Pre-Operative Progress Note H&P Reviewed The H&P was reviewed, patient examined and no changes noted. Date Seen by Provider: Oct 13, 2020 Time Seen by Provider: 09:30 Date H&P Reviewed: Oct 13, 2020 Time H&P Reviewed: 09:25 Pre-Operative Diagnosis: Symptomatic chronic calculous cholecystitis LORETO LYNCH APRN Oct 13, 2020 09:37
[2020-10-13] MEDS ORDERED: HYDR-4227 PO (09:39)
--- NOTE | 2020-10-13 09:39 | Discharge Inst-Surgical ---
D/C Lap Instructions-KIDO Reconcile Patient Problems Problems Reviewed?: Yes New, Converted, or Re-Newed RX: RX on Chart Follow Up Appt in 2 weeks Activity as tolerated No driving for 24 hours No driving while on pain medications Incentive Spirometry use every 2 hours while awake Regular Diet Symptoms to Report: Fever over 101 degree F, Nausea/Vomiting Infection Signs and Symptoms to report: Increased redness, Foul odor of wound, Increased drainage Bathing instructions: May shower Operative Area Clean/Dry; Keep incision clean/dry If any problems/questions: Contact your physician or go to Emergency Room LORETO LYNCH APRN Oct 13, 2020 09:39
[2020-10-13] MEDS ORDERED: ONDANSETRON 4 MG/2 ML (SDV) Z0FRAN IVP PRN ×2 (09:45→13:00)
[2020-10-13] MEDS ORDERED: HYDROcodone/APAP 5 MG/325 MG (LORTAB) TAB PO ONE (09:45)
[2020-10-13] MEDS ORDERED: ACETAMINOPHEN 325 MG TABLET PO PRN (09:45)
[2020-10-13] MEDS ORDERED: morphine INJ 10 MG/ML 1ML (SYR OR VIAL) IVP PRN (09:45)
[2020-10-13] MEDS: LACTATED RINGERS 1,000 ML IV PRN ×2 (10:01→12:05)
[2020-10-13] MEDS ORDERED: LIDOCAINE/EPI 1%-1:200,000 (XYLOCAINE) 10 ML VIAL ONE (10:16)
[2020-10-13] MEDS ORDERED: proPOfol 200 MG/20 ML (DIPRIVAN) VIAL IV ONE (10:28)
[2020-10-13] MEDS ORDERED: ROCURONIUM 10 MG/ML 5 ML SYRINGE IV ONE (10:28)
[2020-10-13] MEDS ORDERED: LIDOCAINE PF 2% 5 ML (XYLOCAINE) VIAL ONE (10:28)
[2020-10-13] MEDS ORDERED: SEVOFLURANE (ULTANE) 15 ML INHAL SOLN ONE ×4 (10:28→11:58)
[2020-10-13] MEDS ORDERED: ONDANSETRON 4 MG/2 ML (SDV) Z0FRAN ONE (10:28)
[2020-10-13] MEDS ORDERED: MIDAZOLAM 2 MG/2 ML (VERSED) VIAL ONE (10:29)
[2020-10-13] MEDS ORDERED: fentaNYL INJECTION 100 MCG/2 ML AMP ONE (10:29)
[2020-10-13] MEDS: ceFAZolin INJECTION 1,000 MG in WATER (STERILE) FOR INJECTION 10 ML IV ONE ×2 (11:08→11:44)
[2020-10-13] MEDS: ceFAZolin 2 GM IV Premixed 50 ML ONE ×2 (11:08→11:41)
--- NOTE | 2020-10-13 12:02 | Progress Note-Post Operative ---
Post-Operative Progess Note Surgeon (s)/Biologist Aide (s) Surgeon DAVID BUTLER MD Biologist Aide: susanne salazar EXECUTIVE PASTRY CHEF Pre-Operative Diagnosis Symptomatic chronic calculous cholecystitis Post-Operative Diagnosis same Procedure & Operative Findings Date of Procedure 10/13/20 Procedure Performed/Findings laparoscopic cholecystectomy Anesthesia Type get Estimated Blood Loss Estimated blood loss (mL): minimal Specimens/Packing Specimens Removed gallbladder DAVID BUTLER MD Oct 13, 2020 12:02
--- NOTE | 2020-10-13 12:54 | Anesthesia-General Post-Op ---
General Patient Condition Mental Status/LOC: Same as Preop Cardiovascular: Satisfactory Nausea/Vomiting: Absent Respiratory: Satisfactory Pain: Controlled Complications: Absent Post Op Complications Complications None Follow Up Care/Instructions Patient Instructions None needed. Anesthesia/Patient Condition Patient Condition Patient is doing well, no complaints, stable vital signs, no apparent adverse anesthesia problems. No complications reported per nursing. GRACE RICE CRNA Oct 13, 2020 12:54
[2020-10-13] MEDS ORDERED: morphine INJ 10 MG/ML 1ML (SYR OR VIAL) IVP ONE (13:00)
--- NOTE | 2020-10-13 17:28 | OPERATIVE REPORT ---
DATE OF SERVICE: 10/13/2020 ATTENDING PRIMARY CARE PHYSICIAN: Adebayo Bennett DO PREOPERATIVE DIAGNOSES: Chronic calculous, cholecystitis. POSTOPERATIVE DIAGNOSES: Chronic calculous, cholecystitis. PROCEDURE: Laparoscopic cholecystectomy. SURGEON: David Butler MD HERB DIGGER: Michael Delvalle APRN ANESTHESIA: General endotracheal. ESTIMATED BLOOD LOSS: Minimal. FINDINGS: Distended gallbladder, no gallbladder wall thickening with multiple small stones. DISPOSITION: The patient tolerated the procedure well. INDICATIONS: The patient is a 35-year-old male known to us. We had seen him in 2018 for gastroesophageal reflux disease and underwent an EGD and was found to have reflux esophagitis stage II and a small hiatal hernia 1.5 cm in size as well as a moderate gastritis with small superficial erosions throughout the antrum of the stomach. He did have right upper abdominal quadrant discomfort and underwent an ultrasound in 2019, found to have sludge in the gallbladder and at that time, decided to proceed with watchful waiting. He reported that 2 weeks ago he presented to the Emergency Department with what he thought was chest pain and underwent a cardiac workup, which was negative. Upon further questioning, he reports that he has had issues with nausea, abdominal bloating as well as pain in the right upper abdominal quadrant with radiation towards the back. DESCRIPTION OF PROCEDURE: The patient was brought to the operating room, laid supine on the table. After adequate IV pain and sedative medications and general endotracheal intubation, the abdomen was prepped and draped in standard surgical fashion. A 0.5% Marcaine with epinephrine was then used to anesthetize the overlying skin in the left upper abdominal quadrant and a transverse skin incision made using a 15 blade. An 0 silk suture was applied to the medial aspect incision for retraction and a Veress needle inserted with a low opening pressure of 0 mmHg and the abdomen was insufflated to 15 mmHg pressure. The Veress needle removed and a 5 mm XL trocar placed followed by a 5 mm 45-degree angle laparoscope visualizing the peritoneal cavity. A 4-quadrant abdominal exploration was performed. There was a distended gallbladder, no gallbladder wall thickening. What was visualized of the liver, omentum and stomach appeared normal. Under direct visualization, we then proceeded to place a supraumbilical 10 mm port after the skin and peritoneal lining were anesthetized using 0.5% Marcaine with epinephrine and a transverse skin incision made using 15 blade. In a similar manner, a right upper abdominal quadrant 5 mm port was placed. The patient was then placed in a reverse Trendelenburg position as well as plane right side up, left side down. The fundus of the gallbladder was then retracted anteriorly and superiorly. The hepatoduodenal ligament was then opened using blunt dissection as well as electrocautery on the hook instrument. The entire critical view of safety was identified including the triangle of Calot as well as the cystic duct and artery as the only two structures going to the gallbladder as well as the cystic plate behind the proximal gallbladder. A timeout was then taken and the cystic duct and artery were then clipped proximally, distally and cut with EndoShears. The gallbladder was then dissected off the liver bed using electrocautery, on hook instrument with visualization of good hemostasis as well as no leaking ducts of Luschka. The gallbladder was removed through the 10 mm port site using an EndoCatch bag. The 10 mm port site fascia and peritoneum were then closed under direct visualization using a Ralph-Ric device and 0 Vicryl suture. The abdomen was desufflated and the remaining ports were removed and all skin incisions were closed using 4-0 Monocryl running subcuticular sutures. Wounds were then cleaned and covered with Dermabond. The patient tolerated the procedure well. We will start IV normal pain medication as well as a clear liquid diet. Once he is tolerating clears, has good pain control with oral pain medications, ambulating well, we will discharge him home. He will be instructed to do no heavy lifting or exertion for the next two weeks. Job ID: [id number] DocumentID: [id number] Dictated Date: 10/13/2020 12:09:26 Director Social Date: 10/13/2020 17:28:29 Dictated By: DAVID BUTLER MD
== END 2020-10-13 14:20 ==
LOC: SDC 09:11
PROVIDERS: ATTEND Surgery
DX: K80.10 Calculus of gallbladder with chronic cholecystitis without obstruction (principal); K44.9 Diaphragmatic hernia without obstruction or gangrene; K21.00 Gastro-esophageal reflux disease with esophagitis, without bleeding; Z79.899 Other long term (current) drug therapy; Z83.3 Family history of diabetes mellitus
CPT/HCPCS: 87081; 88304

== ENCOUNTER 2021-03-31 11:39 | Emergency (ER) | payer BC ==
[~2021-03-31] VITALS: Ht 172.7 cm; Wt 83.9 kg
[~2021-03-31 11:39] MED LIST changes: +HYDR-4227 PO
--- NOTE | 2021-03-31 12:51 | ED General ---
General Stated Complaint: UPPER/LOW EXT NUMBNESS,BACK PAIN Source of Information: Patient Exam Limitations: No Limitations History of Present Illness Date Seen by Provider: Mar 31, 2021 Time Seen by Provider: 12:50 Initial Comments To ER with pain to the left side of C7 for about a week with right arm tingling and numbness. The right leg also has some tingling and numbness but to a lesser degree. No difficulties with walking. Also had an episode this morning where he lost his train of thought. Also complains of some central chest pressure. Timing/Duration: 1-2 Days Severity: Moderate Allergies and Home Medications Allergies Coded Allergies: No Known Drug Allergies (Unverified , 10/13/20) Home Medications Hydrocodone/Acetaminophen 1 Each Tablet, 1-2 TAB PO Q4H Prescribed by: LORETO LYNCH on 10/13/20 0939 Pantoprazole Sodium 40 Mg Tablet.dr, 40 MG PO DAILY, (Reported) Patient Home Medication List Home Medication List Reviewed: Yes Review of Systems Review of Systems Constitutional: see HPI EENTM: see HPI Respiratory: no symptoms reported Cardiovascular: no symptoms reported Genitourinary: no symptoms reported Musculoskeletal: no symptoms reported Skin: no symptoms reported Psychiatric/Neurological: No Symptoms Reported Hematologic/Lymphatic: No Symptoms Reported Immunological/Allergic: no symptoms reported Past Wkphefn-Vdpfky-Elatei Hx Seasonal Allergies Seasonal Allergies: No Past Medical History Surgeries: Yes (PILONIDAL CYST) Respiratory: No Cardiac: No Neurological: No Reproductive Disorders: No Sexually Transmitted Disease: No HIV/AIDS: No Genitourinary: No Gastrointestinal: Yes Gastroesophageal Reflux, Gall Bladder Disease Musculoskeletal: No Endocrine: No HEENT: No Loss of Vision: Bilateral Hearing Impairment: Denies Cancer: No Psychosocial: No Integumentary: No Blood Disorders: No Adverse Reaction/Blood Tranf: No Physical Exam Vital Signs Vital Signs - First Documented 03/31/21 12:32 Pulse 66 Resp 20 B/P (MAP) 142/97 (112) Pulse Ox 96 O2 Delivery Room Air Capillary Refill : Height, Weight, BMI Height: 5'8.00" Weight: 165lbs. 0.0oz. 74.966292jp; 27.82 BMI Method:Stated General Appearance: No Apparent Distress, WD/WN Eyes: Bilateral Eye Normal Inspection, Bilateral Eye PERRL, Bilateral Eye EOMI Neck: Full Range of Motion, Normal Inspection Respiratory: No Accessory Muscle Use, No Respiratory Distress Cardiovascular: Regular Rate, Rhythm, Normal Peripheral Pulses Gastrointestinal: Normal Bowel Sounds, Non Tender, Soft Extremity: Normal Capillary Refill, Normal Inspection, Other (Upper extremity strength 5 out of 5) Neurologic/Psychiatric: Alert, Oriented x3 Skin: Normal Color, Warm/Dry Progress/Results/Core Measures Suspected Sepsis SIRS Temperature: Pulse: Respiratory Rate: Laboratory Tests 03/31/21 12:43: White Blood Count 7.4 Blood Pressure / Mean: Laboratory Tests 03/31/21 12:43: Creatinine 1.08, Platelet Count 313, Total Bilirubin 0.7 Results/Orders Lab Results Laboratory Tests Test 03/31/21 12:43 Range/Units White Blood Count 7.4 4.3-11.0 10^3/uL Red Blood Count 5.50 4.30-5.52 10^6/uL Hemoglobin 17.1 13.3-17.7 g/dL Hematocrit 49 40-54 % Mean Corpuscular Volume 89 80-99 fL Mean Corpuscular Hemoglobin 31 25-34 pg Mean Corpuscular Hemoglobin Concent 35 32-36 g/dL Red Cell Distribution Width 12.0 10.0-14.5 % Platelet Count 313 130-400 10^3/uL Mean Platelet Volume 9.0 9.0-12.2 fL Immature Granulocyte % (Auto) 0 % Neutrophils (%) (Auto) 60 42-75 % Lymphocytes (%) (Auto) 27 12-44 % Monocytes (%) (Auto) 11 0-12 % Eosinophils (%) (Auto) 1 0-10 % Basophils (%) (Auto) 0 0-10 % Neutrophils # (Auto) 4.4 1.8-7.8 10^3/uL Lymphocytes # (Auto) 2.0 1.0-4.0 10^3/uL Monocytes # (Auto) 0.8 0.0-1.0 10^3/uL Eosinophils # (Auto) 0.1 0.0-0.3 10^3/uL Basophils # (Auto) 0.0 0.0-0.1 10^3/uL Immature Granulocyte # (Auto) 0.0 0.0-0.1 10^3/uL Sodium Level 139 135-145 MMOL/L Potassium Level 4.4 3.6-5.0 MMOL/L Chloride Level 102 98-107 MMOL/L Carbon Dioxide Level 25 21-32 MMOL/L Anion Gap 12 5-14 MMOL/L Blood Urea Nitrogen 15 7-18 MG/DL Creatinine 1.08 0.60-1.30 MG/DL Estimat Glomerular Filtration Rate > 60 BUN/Creatinine Ratio 14 Glucose Level 95 70-105 MG/DL Calcium Level 9.5 8.5-10.1 MG/DL Corrected Calcium 9.1 8.5-10.1 MG/DL Magnesium Level 2.0 1.6-2.4 MG/DL Total Bilirubin 0.7 0.1-1.0 MG/DL Aspartate Amino Transf (AST/SGOT) 21 5-34 U/L Alanine Aminotransferase (ALT/SGPT) 46 0-55 U/L Alkaline Phosphatase 65 40-136 U/L Myoglobin 39.2 10.0-92.0 NG/ML Troponin I < 0.028 <0.028 NG/ML B-Type Natriuretic Peptide < 10.0 <100.0 PG/ML Total Protein 7.8 6.4-8.2 GM/DL Albumin 4.5 3.2-4.5 GM/DL My Orders Orders - STEVO SAVAGE APRN Mri Cervical Spine W/O Contras (03/31/21 12:46) Cbc With Automated Diff (03/31/21 12:46) Magnesium (03/31/21 12:46) Chest 1 View, Ap/Pa Only (03/31/21 12:46) Ekg Tracing (03/31/21 12:46) Comprehensive Metabolic Panel (03/31/21 12:46) Myoglobin Serum (03/31/21 12:46) O2 (03/31/21 12:46) Monitor-Rhythm Ecg Trace Only (03/31/21 12:46) Lipid Panel (04/01/21 06:00) Ed Iv/Invasive Line Start (03/31/21 12:46) BNP (03/31/21 12:46) Troponin I (03/31/21 12:46) Ct Head Wo (03/31/21 14:20) Vital Signs/I&O 03/31/21 12:32 Pulse 66 Resp 20 B/P (MAP) 142/97 (112) Pulse Ox 96 O2 Delivery Room Air Capillary Refill : Diagnostic Imaging Diagonstic Imaging: CT Comments NAME: [facility] REC#: [id number] PT STATUS: REG ER : 1985 PHYSICIAN: STEVO SAVAGE APRN ADMIT DATE: 03/31/21/ER Signed Date of Exam:03/31/21 MRI CERVICAL SPINE W/O CONTRAS PROCEDURE: MR imaging cervical spine without contrast. TECHNIQUE: Multiplanar, multisequence MR imaging of the cervical spine was performed without contrast. INDICATION: Right arm weakness. Neck pain. COMPARISON: none. FINDINGS: No acute fracture or dislocation is seen in the cervical spine. There is normal alignment of the cervical spine. The vertebral body heights and disc spaces are well maintained. The bone marrow signal is unremarkable. No focal osseous lesions. The craniocervical junction is maintained. The cervical spinal cord demonstrates normal intrinsic signal. No epidural collections are seen. The included brainstem and posterior fossa have normal appearance. Multilevel degenerative changes are seen in the cervical spine with posterior disc bulges and uncovertebral arthropathy. C2-C3: No significant spinal canal or foraminal stenosis. C3-C4: No significant spinal canal or foraminal stenosis. C4-C5: Posterior disc bulge and uncovertebral arthropathy results in mild spinal canal narrowing and moderate right and mild left foraminal narrowing. C5-C6: Posterior disc bulge and uncovertebral arthropathy results in mild spinal canal narrowing and mild bilateral foraminal narrowing. C6-C7: Posterior disc bulge and uncovertebral arthropathy results in mild spinal canal narrowing and moderate right and mild left foraminal narrowing. C7-T1: No significant spinal canal or foraminal stenosis. The soft tissues of neck are unremarkable. Impression: 1. No acute fracture or dislocation of the cervical spine. 2. Multilevel degenerative changes in the cervical spine, greatest at C4-C5 and C6-C7. Dictated by: Dictated on workstation # [id number] Dict: 03/31/21 1333 Trans: 03/31/21 1342 [facility] [id number] Interpreted by: DONALD MAGALLANES DO Electronically signed by: DONALD MAGALLANES DO 03/31/21 1342 Departure Communication (Admissions) EKG shows sinus rhythm rate of 65 normal intervals no ectopy Impression Primary Impression: Cervical radiculopathy Disposition: 01 HOME, SELF-CARE Condition: Stable Departure-Patient Inst. Decision time for Depature: 14:41 Referrals: RANJEET WINCHESTER DO (PCP/Family) Primary Care Physician Patient Instructions: Radiculopathy (DC) Scripts Prednisone (Prednisone) 20 Mg Tab 40 MG PO DAILY, #6 TAB 0 Refills Prov: STEVO SAVAGE APRN 03/31/21 Copy Copies To 1: RANJEET WINCHESTER PETER J APRN Mar 31, 2021 12:51
[2021-03-31 13:03] LABS: BASOPHILS % (AUTO) 0 % (0-10); EOSINOPHILS # (AUTO) 0.1 10^3/uL (0.0-0.3); EOSINOPHILS % (AUTO) 1 % (0-10); HEMATOCRIT 49 % (40-54); HEMOGLOBIN 17.1 g/dL (13.3-17.7); LYMPHOCYTES % (AUTO) 27 % (12-44); MEAN CORPUSCULAR HEMOGLOBIN 31 pg (25-34); MEAN CORPUSCULAR HGB CONC 35 g/dL (32-36); MEAN CORPUSCULAR VOLUME 89 fL (80-99); MONOCYTES # (AUTO) 0.8 10^3/uL (0.0-1.0); MONOCYTES % (AUTO) 11 % (0-12); NEUTROPHILS # (AUTO) 4.4 10^3/uL (1.8-7.8); NEUTROPHILS % (AUTO) 60 % (42-75); PLATELET COUNT 313 10^3/uL (130-400); WHITE BLOOD COUNT 7.4 10^3/uL (4.3-11.0)
[2021-03-31 13:29] LABS: ALBUMIN 4.5 GM/DL (3.2-4.5)
[2021-03-31 13:30] LABS: CHLORIDE 102 MMOL/L (98-107); POTASSIUM 4.4 MMOL/L (3.6-5.0); SODIUM 139 MMOL/L (135-145)
[2021-03-31 13:31] LABS: CALCIUM 9.5 MG/DL (8.5-10.1)
--- NOTE | 2021-03-31 13:31 | Diagnostic Imaging Report ---
EXAMINATION: Chest, one view. HISTORY: Chest pain. COMPARISON: Chest radiograph on 09/19/2020. FINDINGS: The lung volumes are normal. No focal consolidation is seen. No large pleural effusion or pneumothorax is seen. The cardiomediastinal silhouette is normal in size and contour. No acute osseous abnormality is seen. IMPRESSION: 1. No acute pleuroparenchymal process. Dictated by: Dictated on workstation # [id number]
[2021-03-31 13:32] LABS: GLUCOSE 95 MG/DL (70-105); TOTAL PROTEIN 7.8 GM/DL (6.4-8.2)
[2021-03-31 13:33] LABS: CARBON DIOXIDE 25 MMOL/L (21-32)
[2021-03-31 13:34] LABS: BILIRUBIN,TOTAL 0.7 MG/DL (0.1-1.0)
[2021-03-31 13:36] LABS: ALKALINE PHOSPHATASE 65 U/L (40-136); CREATININE SERUM 1.08 MG/DL (0.60-1.30); GFR ESTIMATED > 60
[2021-03-31 13:37] LABS: BUN/CREATININE RATIO 14
--- NOTE | 2021-03-31 13:37 | Diagnostic Imaging Report ---
PROCEDURE: MR imaging cervical spine without contrast. TECHNIQUE: Multiplanar, multisequence MR imaging of the cervical spine was performed without contrast. INDICATION: Right arm weakness. Neck pain. COMPARISON: none. FINDINGS: No acute fracture or dislocation is seen in the cervical spine. There is normal alignment of the cervical spine. The vertebral body heights and disc spaces are well maintained. The bone marrow signal is unremarkable. No focal osseous lesions. The craniocervical junction is maintained. The cervical spinal cord demonstrates normal intrinsic signal. No epidural collections are seen. The included brainstem and posterior fossa have normal appearance. Multilevel degenerative changes are seen in the cervical spine with posterior disc bulges and uncovertebral arthropathy. C2-C3: No significant spinal canal or foraminal stenosis. C3-C4: No significant spinal canal or foraminal stenosis. C4-C5: Posterior disc bulge and uncovertebral arthropathy results in mild spinal canal narrowing and moderate right and mild left foraminal narrowing. C5-C6: Posterior disc bulge and uncovertebral arthropathy results in mild spinal canal narrowing and mild bilateral foraminal narrowing. C6-C7: Posterior disc bulge and uncovertebral arthropathy results in mild spinal canal narrowing and moderate right and mild left foraminal narrowing. C7-T1: No significant spinal canal or foraminal stenosis. The soft tissues of neck are unremarkable. Impression: 1. No acute fracture or dislocation of the cervical spine. 2. Multilevel degenerative changes in the cervical spine, greatest at C4-C5 and C6-C7. Dictated by: Dictated on workstation # [id number]
[2021-03-31 13:39] LABS: ALANINE AMINOTRANSFERASE 46 U/L (0-55)
--- NOTE | 2021-03-31 14:58 | Diagnostic Imaging Report ---
PROCEDURE: CT head without contrast. TECHNIQUE: Multiple contiguous axial images were obtained through the brain without the use of intravenous contrast. Auto Exposure Controls were utilized during the CT exam to meet ALARA standards for radiation dose reduction. INDICATION: Numbness in the arms. No prior studies are available for comparison. Ventricles and sulci are within normal limits. No sulcal effacement or midline shift is identified. No acute intra-axial or extra-axial hemorrhage is detected. Cisterns are patent. Visualized paranasal sinuses are clear. IMPRESSION: No acute intracranial process is detected. Dictated by: Dictated on workstation # [id number]
[2021-03-31] MEDS ORDERED: PRD20T PO (15:07)
[2021-03-31 15:15] VITALS: BP 136/89
== END 2021-03-31 15:21 | disposition home or self-care (01) ==
LOC: EDUNIT# 11:39 → ER 11:41
DX: M54.12 Radiculopathy, cervical region (principal); K21.9 Gastro-esophageal reflux disease without esophagitis; Z79.899 Other long term (current) drug therapy
CPT/HCPCS: 36415; 70450; 71045; 72141; 80053; 83735; 83874; 83880; 84484; 85025; 93005; 93041

== ENCOUNTER → 2021-08-14 | Outpatient (CLI) | payer BC ==
[~2021-08-14] MED LIST changes: +PRD20T PO
--- NOTE | 2021-08-14 13:10 | Diagnostic Imaging Report ---
PROCEDURE: MR imaging of the brain without contrast. TECHNIQUE: Multiplanar, multisequence MR imaging of the brain was performed without contrast. DATE: August 14, 2021. COMPARISON: CT head March 31, 2021. HISTORY: 36-year-old male, right arm numbness. FINDINGS: There is no restricted diffusion. There are no areas of abnormal intracranial susceptibility. The ventricles and CSF spaces are normal in size and configuration for patient age. There is no abnormal extra axial fluid collection. There is no acute intracranial hemorrhage. There is no mass effect or midline shift. There are small foci of T2 and FLAIR hyperintense signal in the periventricular and subcortical white matter. There is normal aeration of the visualized paranasal sinuses and mastoid air cells. IMPRESSION: 1. No identified acute intracranial abnormality. 2. Punctate foci of T2 and FLAIR hyperintense signal in the subcortical and periventricular white matter which may reflect mild early findings of chronic small vessel ischemic disease, vasculitis, or a demyelinating process. This also could be seen with chronic migraine headaches. Dictated by: Dictated on workstation # [id number]
== END ==
LOC: RAD 08:45
PROVIDERS: ATTEND Psychiatry & Neurology Neurology
DX: G93.9 Disorder of brain, unspecified (principal)
CPT/HCPCS: 70551

== ENCOUNTER 2022-03-05 20:00 | Emergency (ER) | payer BC ==
[~2022-03-05] VITALS: Ht 175.2 cm; Wt 83.9 kg
[~2022-03-05 20:00] MED LIST changes: +OMEP20TA56 PO; -OMEP20TA7 PO
[2022-03-05 20:13] VITALS: BP 139/96
--- NOTE | 2022-03-05 20:26 | ED Lower Extremity ---
General Chief Complaint: Lower Extremity Stated Complaint: POSS BROKEN L ANKLE Nursing Triage Note: PT TO ROOM BY WHEELCHAIR. PT STATES HE WAS WALKING AND HIS LEFT KNEE "GAVE OUT" AND HIS LEFT ANKLE WENT WITH IT. PT STATES HE WAS ABLE TO WALK "ABOUT 20 YARDS" TO HIS HOUSE, BUT HAS NOT BEEN ABLE TO BEAR WEIGHT ON THE LEFT ANKLE SINCE. PT STATES HE HAS A THROBBING PAIN FROM HIS FOOT ALL THE WAY UP TO HIS KNEE. PULSES ARE PRESENT. CAP REFILL LESS THAN 3 Source: patient Exam Limitations: no limitations (RONDA KNAPP APRN) History of Present Illness Date Seen by Provider: Mar 05, 2022 Time Seen by Provider: 20:17 Initial Comments This is a well-appearing 37-year-old male who presented to the ER via POV with complaints of pain in his left ankle. States that he was just walking outside when all of a sudden his left ankle rolled and he felt a popping sensation. States that he is able to walk approximately 20 yards to his house but has not been able to walk or bear weight on his left foot since. He reports throbbing pain from his foot all the way up to his knee. No lacerations or cuts. Has not taken anything prior to arrival. (RONDA KNAPP APRN) Allergies and Home Medications Allergies Coded Allergies: No Known Drug Allergies (Unverified , 10/13/20) Patient Home Medication List Home Medication List Reviewed: Yes (RONDA KNAPP APRN) Hydrocodone/Acetaminophen ([place] 7.5-325 Tablet) 1 Each Tablet, 1-2 TAB PO Q4H Prescribed by: LORETO LYNCH on 10/13/20 0939 Pantoprazole Sodium (Pantoprazole Sodium) 40 Mg Tablet.dr, 40 MG PO DAILY, (Reported) Entered as Reported by: AREN WELCH on 10/06/20 1452 Prednisone (Prednisone) 20 Mg Tab, 40 MG PO DAILY Prescribed by: STEVO SAVAGE on 03/31/21 1507 Review of Systems Constitutional: no symptoms reported Musculoskeletal: see HPI Skin: see HPI (RONDA KNAPP APRN) Past Xohcgjh-Oshekr-Ccjfng Hx Seasonal Allergies Seasonal Allergies: No (RONDA KNAPP APRN) Past Medical History Surgeries: Yes (PILONIDAL CYST) Respiratory: No Cardiac: No Neurological: No Reproductive Disorders: No Sexually Transmitted Disease: No HIV/AIDS: No Genitourinary: No Gastrointestinal: Yes Gastroesophageal Reflux, Gall Bladder Disease Musculoskeletal: No Endocrine: No HEENT: No Loss of Vision: Bilateral Hearing Impairment: Denies Cancer: No Psychosocial: No Integumentary: No Blood Disorders: No Adverse Reaction/Blood Tranf: No (RONDA KNAPP PRINCIPAL IOS DEVELOPER) Physical Exam Vital Signs Vital Signs - First Documented 03/05/22 20:13 Pulse 82 Resp 16 B/P (MAP) 139/96 (110) Pulse Ox 97 (CELENA,ANGELLA K DO) Vital Signs Capillary Refill : (RONDA KNAPP PRINCIPAL IOS DEVELOPER) Height, Weight, BMI Height: 5'8.00" Weight: 165lbs. 0.0oz. 74.896751of; 27.00 BMI Method:Stated General Appearance: WD/WN, no apparent distress HEENT: PERRL/EOMI, normal ENT inspection, pharynx normal Neck: full range of motion, supple, normal inspection Cardiovascular: regular rate, rhythm, no murmur Respiratory: lungs clear, normal breath sounds, no respiratory distress, no accessory muscle use Gastrointestinal: normal bowel sounds, non tender, soft Knees: bilateral knee non-tender, bilateral knee normal inspection, bilateral knee normal range of motion Ankles: right ankle non-tender, right ankle normal inspection, right ankle normal range of motion, right ankle no evidence of injury; left ankle limited range of motion, left ankle pain, left ankle soft tissue tenderness, left ankle swelling Feet: bilateral foot non-tender, bilateral foot normal inspection, bilateral foot normal range of motion Neurologic/Tendon: normal sensation, responds to pain Neurologic/Psychiatric: no motor/sensory deficits, alert, normal mood/affect, oriented x 3 Skin: normal color, warm/dry Lymphatic: no adenopathy (RONDA KNAPP PRINCIPAL IOS DEVELOPER) Progress/Results/Core Measures Results/Orders Vital Signs/I&O 03/05/22 20:13 Pulse 82 Resp 16 B/P (MAP) 139/96 (110) Pulse Ox 97 (CELENA,ANGELLA K DO) Blood Pressure Mean: 110 Progress Progress Note : Progress Note Patient examined in no acute distress. he has significant swelling to his left lateral ankle. Likely has a ankle sprain however will obtain imaging to rule out any acute fractures. Orders placed for Lortab for pain. Images negative for acute fractures. Went ahead and placed an nahid wrap and stirrup, will go ahead and provide crutches weight bearing as tolerated. Strongly encouraged to keep foot elevated is much as possible over the next 72 hours as this is with the most swelling will occur. The more his ankle swells the more pain he will have, verbalized understanding. Discussed follow-up with his primary care provider if his symptoms persist after couple weeks to evaluate for any occult fractures. Verbalized understanding. Discharge plan of care reviewed and he is agreeable with plan. (RONDA KNAPP APRN) Diagnostic Imaging Diagonstic Imaging: Xray Plain Films/CT/US/NM/MRI: ankle Comments [facility], [place] NAME: MILLY CAMPBELL [facility] REC#: [id number] PT STATUS: DEP ER : 1985 PHYSICIAN: RONDA KNAPP APRN ADMIT DATE: 03/05/22/ER Signed Date of Exam:03/05/22 ANKLE, LEFT, 3 VIEWS INDICATION: Rolled ankle, pain and swelling. EXAMINATION: Left ankle 03/05/2022 FINDINGS: 3 views of the ankle There is marked soft tissue swelling laterally and anteriorly. No underlying fractures or dislocations appreciated. Ankle mortise intact. IMPRESSION: 1. Soft tissue swelling with no acute acute fractures appreciated. Dictated by: Dictated on workstation # [id number] Dict: 03/05/222053 Trans: 03/05/222241 [facility] [phone] Interpreted by: NOHEMY GILLETTE MD Electronically signed by: NOHEMY GILLETTE MD 03/05/222241 (RONDA KNAPP APRN) Departure Impression Primary Impression: Sprain and strain of ankle Disposition: 01 HOME, SELF-CARE Condition: Improved Departure-Patient Inst. Decision time for Depature: 21:02 (RONDA KNAPP APRN) Referrals: RANJEET WINCHESTER DO (PCP/Family) Primary Care Physician Patient Instructions: Ankle Sprain ED Add. Discharge Instructions: Pain: 1. May use crutches and slowly add weight bearing as tolerated. 2. Use nahid wrap to help with swelling, re-wrap as needed to keep good compression. 3. May use ice 20 minutes at a time for swelling and pain. 4. May use Tylenol 1000mg every 8 hours or Ibuprofen 600mg every 6 hours as needed for pain. 5. Follow up with your doctor for any persistent symptoms. 6. It may take a few weeks for your pain and swelling to resolve. 7. Return for any new, concerning, or worsening symptoms. All discharge instructions reviewed with patient and/or family. Voiced understanding. ATTENDING PHYSICIAN NOTE: I WAS PHYSICALLY PRESENT ER PHYSICIAN, BUT I WAS NOT INVOLVED IN ANY DECISION MAKING OR ANY CARE OF THIS PATIENT. (ANGELLA DALLAS DO) RONDA KNAPP APRN Mar 05, 2022 20:26 ANGELLA DALLAS DO Mar 07, 2022 02:25
[2022-03-05] MEDS ORDERED: HYDROcodone/APAP 5 MG/325 MG (LORTAB) TAB PO ONE (20:30)
--- NOTE | 2022-03-05 21:00 | Diagnostic Imaging Report ---
INDICATION: Rolled ankle, pain and swelling. EXAMINATION: Left ankle 03/05/2022 FINDINGS: 3 views of the ankle There is marked soft tissue swelling laterally and anteriorly. No underlying fractures or dislocations appreciated. Ankle mortise intact. IMPRESSION: 1. Soft tissue swelling with no acute acute fractures appreciated. Dictated by: Dictated on workstation # [id number]
== END 2022-03-05 21:16 | disposition home or self-care (01) ==
LOC: EDUNIT# 20:00 → ER 20:04
DX: S93.402A Sprain of unspecified ligament of left ankle, initial encounter (principal); S96.912A Strain of unspecified muscle and tendon at ankle and foot level, left foot, initial encounter; X50.1XXA Overexertion from prolonged static or awkward postures, initial encounter; Y93.01 Activity, walking, marching and hiking
CPT/HCPCS: 73610; 99283; L4350

== ENCOUNTER 2022-07-09 20:59 | Emergency (ER) | payer BC ==
[~2022-07-09] VITALS: Ht 172.7 cm; Wt 83.9 kg
[2022-07-09 21:43] LABS: BASOPHILS % (AUTO) 1 % (0-10); EOSINOPHILS # (AUTO) 0.2 10^3/uL (0.0-0.3); EOSINOPHILS % (AUTO) 2 % (0-10); HEMATOCRIT 44 % (40-54); HEMOGLOBIN 15.8 g/dL (13.3-17.7); LYMPHOCYTES # (AUTO) 2.3 10^3/uL (1.0-4.0); LYMPHOCYTES % (AUTO) 31 % (12-44); MEAN CORPUSCULAR HEMOGLOBIN 32 pg (25-34); MEAN CORPUSCULAR HGB CONC 36 g/dL (32-36); MEAN CORPUSCULAR VOLUME 87 fL (80-99); MEAN PLATELET VOLUME 8.9 fL (9.0-12.2); MONOCYTES # (AUTO) 0.7 10^3/uL (0.0-1.0); MONOCYTES % (AUTO) 9 % (0-12); NEUTROPHILS # (AUTO) 4.3 10^3/uL (1.8-7.8); NEUTROPHILS % (AUTO) 58 % (42-75); PLATELET COUNT 309 10^3/uL (130-400); WHITE BLOOD COUNT 7.5 10^3/uL (4.3-11.0)
[2022-07-09 21:51] LABS: FIBRIN DEGRADATION PRODUCTS 0.27 UG/ML (0.00-0.49)
[2022-07-09 21:52] LABS: PROTHROMBIN TIME PATIENT 13.1 SEC (12.2-14.7)
[2022-07-09 21:57] LABS: ALANINE AMINOTRANSFERASE 31 U/L (0-55); ALBUMIN 4.2 GM/DL (3.2-4.5); ALKALINE PHOSPHATASE 66 U/L (40-136); BILIRUBIN,TOTAL 0.6 MG/DL (0.1-1.0); BUN/CREATININE RATIO 13; CALCIUM 9.6 MG/DL (8.5-10.1); CARBON DIOXIDE 23 MMOL/L (21-32); CHLORIDE 104 MMOL/L (98-107); CREATINE KINASE 144 U/L (30-200); CREATININE SERUM 1.07 MG/DL (0.60-1.30); GFR ESTIMATED 92; GLUCOSE 124 MG/DL (70-105); SODIUM 139 MMOL/L (135-145); TOTAL PROTEIN 7.7 GM/DL (6.4-8.2)
--- NOTE | 2022-07-09 21:57 | Diagnostic Imaging Report ---
INDICATION: Hypertension Single AP view of the chest is obtained with comparison made study of 03/31/2021 FINDINGS: Heart size and pulmonary vascularity are within normal limits, and the lungs are clear, bilaterally. IMPRESSION: Unremarkable chest. Dictated by: Dictated on workstation # [id number]
[2022-07-09 22:01] LABS: ERYTHROCYTE SEDIMENTATION RATE 4 MM/HR (0-15)
--- NOTE | 2022-07-09 22:06 | Diagnostic Imaging Report ---
PROCEDURE: CT head and maxillofacial without contrast. TECHNIQUE: Multiple contiguous axial images were obtained through the head and facial bones without the use of intravenous contrast. Auto Exposure Controls were utilized during the CT exam to meet ALARA standards for radiation dose reduction. INDICATION: Head and face trauma. CT HEAD: CT images of the head were obtained. FINDINGS: Ventricles and sulci are within normal limits for size. There is no intracranial hemorrhage identified. There is no abnormal mass effect or shift of midline structures. IMPRESSION: Unremarkable CT of the head. MAXILLOFACIAL CT: Orbits are intact without evidence of intraorbital hematoma. No acute fracture or malalignment is identified. There is right and left conchal bullosa without evidence of paranasal sinus air-fluid level. Temporomandibular joints are intact. IMPRESSION: No acute maxillofacial abnormality. Dictated by: Dictated on workstation # [id number]
[2022-07-09 22:15] LABS: BILIRUBIN,URINE NEGATIVE (NEGATIVE); CLARITY,URINE CLEAR; COLOR,URINE YELLOW; GLUCOSE, URINE (UA) NEGATIVE (NEGATIVE); KETONES,URINE NEGATIVE (NEGATIVE); LEUKOCYTE ESTERASE ,URINE NEGATIVE (NEGATIVE); NITRITE,URINE NEGATIVE (NEGATIVE); PH,URINE 7.5 (5-9); PROTEIN,URINE NEGATIVE (NEGATIVE)
[2022-07-09 22:17] LABS: CREATINE KINASE MB 1.1 NG/ML (<6.6); TSH (THYROID ANALYZER) 1.31 UIU/ML (0.35-4.94)
[2022-07-09 22:20] LABS: BACTERIA,URINE TRACE /HPF; WBC,URINE RARE /HPF
[2022-07-09] MEDS ORDERED: KETOROLAC 30 MG/ML VIAL IVP ONE (23:15)
--- NOTE | 2022-07-09 23:19 | ED General ---
General Chief Complaint: Cardiac/General Problems Stated Complaint: TUNNEL VISION, HIGH BLOOD PRESSURE Nursing Triage Note: PT AMB TO RM 7. PT STATED THAT HE WAS WATCHING TV AND HAD BLURRY VISION, DIZZINESS, LIGHTHEADED, AND SOB THAT STARTED 30 MINUTES AGO. PT TOOK BP AND IT READ 200/110. BP CURRENTLY IS 155/94. Source of Information: Patient History of Present Illness Date Seen by Provider: Jul 09, 2022 Time Seen by Provider: 21:25 Initial Comments PT ARRIVES VIA POV FROM HOME WITH FEMALE S.O. STATES AT 2030 TONIGHT, HE WAS SITTING ON THE COUCH WATCHING TV AND BEGAN TO HAVE DIZZINESS, SLIGHT HEADACHE, AND TUNNEL VISION AND BLURRY VISION DIZZINESS WORSE WITH CLOSING HIS EYES. DIZZINESS IS NOT A SPINNING SENSATION WITH HIS EYES CLOSED HE WAS SEEING SQUIGGLY LINES HE CHECKED HIS BLOOD PRESSURE AND IT WAS 200/110 STATES HE DOES NOT CHECK HIS BLOOD PRESSURE AT HOME, BUT IS USUALLY 140/90 AT 'S OFFICE. HAS NEVER BEEN PRESCRIBED BLOOD PRESSURE MEDICATION NO NAUSEA/VOMITING NO PARESTHESIAS OR MOTOR DEFICITS NO SWEATS NO SYNCOPE NO CHEST PAIN NO PALPITATIONS NO SHORTNESS OF BREATH NO FEVER OR RECENT ILLNESS NO HISTORY OF SIMILAR HAS BEEN UNDER ALOT OF STRESS. 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 DENIES ANYTHING ACUTELY STRESSFUL TONIGHT HAS HAD ONGOING ISSUES WITH PAINFUL SWALLOWING AND HAS A CLICKING NOISE IN HIS THROAT WHEN HE SWALLOWS. HAD ENT SCOPE WHICH WAS NORMAL, PER PT. HAS BEEN REFERRED TO GI. HAS AN APPOINTMENT WITH [facility] THIS SATURDAY IN [place]. PT HAS HISTORY OF ANXIETY AND ANGER ISSUES, AND IS PRESCRIBED CITALOPRAM TAKES OVER THE COUNTER FAMOTIDINE FOR GERD SYMPTOMS HAS BEEN PRESCRIBED SILDENAFIL, BUT HAS NOT TAKEN ANY TONIGHT. PCP: DR. WINCHESTER--LAST SEEN 2 MONTHS AGO FOR ROUTINE WELLNESS CHECK Allergies and Home Medications Allergies Coded Allergies: No Known Drug Allergies (Unverified , 10/13/20) Patient Home Medication List Home Medication List Reviewed: Yes Hydrocodone/Acetaminophen ([place] 7.5-325 Tablet) 1 Each Tablet, 1-2 TAB PO Q4H Prescribed by: LORETO LYNCH on 10/13/20 0939 Pantoprazole Sodium (Pantoprazole Sodium) 40 Mg Tablet., 40 MG PO DAILY, (Reported) Entered as Reported by: AREN WELCH on 10/06/20 1452 Prednisone (Prednisone) 20 Mg Tab, 40 MG PO DAILY Prescribed by: STEVO SAVAGE on 03/31/21 1507 Review of Systems Review of Systems Constitutional: see HPI; No chills, No diaphoresis; dizziness; No fever, No malaise, No weakness EENTM: see HPI, blurred vision, other (TUNNEL VISION) Respiratory: see HPI Cardiovascular: see HPI; No chest pain, No edema, No palpitations, No syncope Gastrointestinal: no symptoms reported Genitourinary: no symptoms reported Musculoskeletal: no symptoms reported Skin: no symptoms reported Psychiatric/Neurological: See HPI, Anxiety, Headache; Denies Numbness, Denies Paresthesia, Denies Seizure, Denies Tingling, Denies Tremors, Denies Weakness Hematologic/Lymphatic: No Symptoms Reported Immunological/Allergic: no symptoms reported Past Xhrshwp-Sdszve-Aehoue Hx Patient Social History Tobacco Use?: No Smoking Status: Never a Smoker Smokeless Tobacco Frequency: Never a User Substance use?: No Alcohol Use?: Yes Immunizations Up To Date Influenza Vaccine Up-to-Date: Yes; Up-to-Date First/Initial COVID19 Vaccinat: Second COVID19 Vaccination [place]: Third COVID19 Vaccination Date: Seasonal Allergies Seasonal Allergies: No Past Medical History Surgeries: Yes (PILONIDAL CYST 2005; ENT SCOPE; EGD 08/2018; RONEY 09/2020 ) Gallbladder Respiratory: No Cardiac: No Neurological: No Reproductive Disorders: Yes (E.D.) Sexually Transmitted Disease: No HIV/AIDS: No Genitourinary: No Gastrointestinal: Yes (ELEVATED LIVER ENZYMES; GASTRITIS) Gastroesophageal Reflux, Hiatal Hernia, Gall Bladder Disease Musculoskeletal: No Endocrine: No HEENT: Yes (PAINFUL SWALLOWING) Loss of Vision: Bilateral Hearing Impairment: Denies Cancer: No Psychosocial: Yes (ANGER ISSUES) Anxiety, Depression Integumentary: No Blood Disorders: No Adverse Reaction/Blood Tranf: No Family Medical History SOCIAL HISTORY: -SMOKING--DENIES USE -ETOH--HISTORY OF ABUSE, CLAIMS NO USE X 6 YEARS, PER PT ON 07/09/22 -DRUGS--DENIES USE Physical Exam Vital Signs Vital Signs - First Documented 07/09/22 07/09/22 21:13 23:24 Temp 36.0 Pulse 72 Resp 16 B/P (MAP) 155/94 (114) Pulse Ox 95 O2 Delivery Room Air Capillary Refill : Height, Weight, BMI Height: 5'8.00" Weight: 165lbs. 0.0oz. 74.917660tl; 28.00 BMI Method:Stated General Appearance: No Apparent Distress, WD/WN, Other (DOES NOT APPEAR ILL OR TO BE IN ANY DISCOMFORT OR DISTRES) Eyes: Bilateral Eye Normal Inspection, Bilateral Eye PERRL, Bilateral Eye EOMI HEENT: PERRL/EOMI, TMs Normal, Normal ENT Inspection, Pharynx Normal; No Moist Mucous Membranes Neck: Full Range of Motion, Normal Inspection, Non Tender, Supple Respiratory: Normal Breath Sounds, No Accessory Muscle Use, No Respiratory Distress Cardiovascular: Regular Rate, Rhythm, No Edema, No JVD, No Murmur, Normal Peripheral Pulses Gastrointestinal: Non Tender, Soft Back: Normal Inspection Extremity: Normal Capillary Refill, Normal Inspection, Normal Range of Motion, Non Tender, No Calf Tenderness, No Pedal Edema Neurologic/Psychiatric: Alert, Oriented x3, No Motor/Sensory Deficits, Normal 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, 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 Norm as Tested; No Abnormal Cerebellar Tests Skin: Normal Color, Warm/Dry; No Rash Progress/Results/Core Measures Suspected Sepsis SIRS Temperature: Pulse: 72 Respiratory Rate: Laboratory Tests 07/09/22 21:25: White Blood Count 7.5 Blood Pressure 155 /94 Mean: 114 Laboratory Tests 07/09/22 21:25: Creatinine 1.07, INR Comment 1.0, Platelet Count 309, Total Bilirubin 0.6 Results/Orders Lab Results Laboratory Tests Test 07/09/22 21:25 07/09/22 22:11 Range/Units White Blood Count 7.5 4.3-11.0 10^3/uL Red Blood Count 5.01 4.30-5.52 10^6/uL Hemoglobin 15.8 13.3-17.7 g/dL Hematocrit 44 40-54 % Mean Corpuscular Volume 87 80-99 fL Mean Corpuscular Hemoglobin 32 25-34 pg Mean Corpuscular Hemoglobin Concent 36 32-36 g/dL Red Cell Distribution Width 12.0 10.0-14.5 % Platelet Count 309 130-400 10^3/uL Mean Platelet Volume 8.9 L 9.0-12.2 fL Immature Granulocyte % (Auto) 0 % Neutrophils (%) (Auto) 58 42-75 % Lymphocytes (%) (Auto) 31 12-44 % Monocytes (%) (Auto) 9 0-12 % Eosinophils (%) (Auto) 2 0-10 % Basophils (%) (Auto) 1 0-10 % Neutrophils # (Auto) 4.3 1.8-7.8 10^3/uL Lymphocytes # (Auto) 2.3 1.0-4.0 10^3/uL Monocytes # (Auto) 0.7 0.0-1.0 10^3/uL Eosinophils # (Auto) 0.2 0.0-0.3 10^3/uL Basophils # (Auto) 0.0 0.0-0.1 10^3/uL Immature Granulocyte # (Auto) 0.0 0.0-0.1 10^3/uL Erythrocyte Sedimentation Rate 4 0-15 MM/HR Prothrombin Time 13.1 12.2-14.7 SEC INR Comment 1.0 0.8-1.4 Activated Partial Thromboplast Time 29 24-35 SEC D-Dimer 0.27 0.00-0.49 UG/ML Sodium Level 139 135-145 MMOL/L Potassium Level 4.0 3.6-5.0 MMOL/L Chloride Level 104 98-107 MMOL/L Carbon Dioxide Level 23 21-32 MMOL/L Anion Gap 12 5-14 MMOL/L Blood Urea Nitrogen 14 7-18 MG/DL Creatinine 1.07 0.60-1.30 MG/DL Estimat Glomerular Filtration Rate 92 BUN/Creatinine Ratio 13 Glucose Level 124 H 70-105 MG/DL Calcium Level 9.6 8.5-10.1 MG/DL Corrected Calcium 9.4 8.5-10.1 MG/DL Magnesium Level 2.0 1.6-2.4 MG/DL Total Bilirubin 0.6 0.1-1.0 MG/DL Aspartate Amino Transf (AST/SGOT) 16 5-34 U/L Alanine Aminotransferase (ALT/SGPT) 31 0-55 U/L Alkaline Phosphatase 66 40-136 U/L Total Creatine Kinase 144 30-200 U/L Creatine Kinase MB 1.1 <6.6 NG/ML Myoglobin 34.0 10.0-92.0 NG/ML Troponin I < 0.028 <0.028 NG/ML C-Reactive Protein High Sensitivity 0.10 0.00-0.50 MG/DL Total Protein 7.7 6.4-8.2 GM/DL Albumin 4.2 3.2-4.5 GM/DL TSH [place] Testing 1.31 0.35-4.94 UIU/ML Urine Color YELLOW Urine Clarity CLEAR Urine pH 7.5 5-9 Urine Specific [place] 1.015 L 1.016-1.022 Urine Protein NEGATIVE NEGATIVE Urine Glucose (UA) NEGATIVE NEGATIVE Urine Ketones NEGATIVE NEGATIVE Urine Nitrite NEGATIVE NEGATIVE Urine Bilirubin NEGATIVE NEGATIVE Urine Urobilinogen 0.2 < = 1.0 MG/DL Urine Leukocyte Esterase NEGATIVE NEGATIVE Urine RBC (Auto) TRACE-I H NEGATIVE Urine RBC NONE /HPF Urine WBC RARE /HPF Urine Squamous Epithelial Cells NONE /HPF Urine Renal Epithelial Cells NONE /HPF Urine Crystals NONE /LPF Urine Bacteria TRACE /HPF Urine Casts NONE /LPF Urine Mucus NEGATIVE /LPF Urine Culture Indicated NO My Orders Orders - ANGELLA DALLAS DO Ed Iv/Invasive Line Start (07/09/22 21:36) Ekg Tracing (07/09/22 21:36) Monitor-Rhythm Ecg Trace Only (07/09/22 21:36) Ct Head/Maxillofacial Wo (07/09/22 21:36) Chest 1 View, Ap/Pa Only (07/09/22 21:36) Cbc With Automated Diff (07/09/22 21:36) Comprehensive Metabolic Panel (07/09/22 21:36) Creatine Kinase (07/09/22 21:36) Creatine Kinase Mb (07/09/22 21:36) Hs C Reactive Protein (07/09/22 21:36) Fibrin Degradation Products (07/09/22 21:36) Magnesium (07/09/22 21:36) Protime With Inr (07/09/22 21:36) Partial Thromboplastin Time (07/09/22 21:36) Thyroid Analyzer (07/09/22 21:36) Ua Culture If Indicated (07/09/22 21:36) Erythrocyte Sedimentation Rate (07/09/22 21:36) Myoglobin Serum (07/09/22 21:36) Troponin I Michael (07/09/22 21:36) Ketorolac Injection (Toradol Injection) (07/09/22 23:15) Medications Given in ED Current Medications Medications Dose Ordered Sig/Sintia Route Start Time Stop Time Status Last Admin Dose Admin Ketorolac Tromethamine 30 mg ONCE ONCE IVP 07/09/22 23:15 07/09/22 23:16 DC 07/09/22 23:16 30 MG Vital Signs/I&O 07/09/22 07/09/22 21:13 23:24 Temp 36.0 36.0 Pulse 72 71 Resp 16 B/P (MAP) 155/94 (114) 141/87 Pulse Ox 95 95 O2 Delivery Room Air Room Air Capillary Refill : Blood Pressure Mean: 114 Progress Note : Progress Note BLOOD PRESSURE DOWN TO HIS BASELINE 140'S/90'S WITHOUT TREATMENT GIVEN TORADOL FOR VERY MILD RESIDUAL HEADACHE SYMPTOMS HAVE RESOLVED AT DISMISSAL ECG Initial ECG Impression Date: Jul 09, 2022 Initial ECG Impression Time: 22:04 Initial ECG Rate: 70 Initial ECG Rhythm: Normal Sinus Diagnostic Imaging Comments PER RADIOLOGIST REPORTS AT 2225 CXR--FINDINGS: Heart size and pulmonary vascularity are within normal limits, and the lungs are clear, bilaterally. IMPRESSION: Unremarkable chest. CT HEAD--CT HEAD: CT images of the head were obtained. FINDINGS: Ventricles and sulci are within normal limits for size. There is no intracranial hemorrhage identified. There is no abnormal mass effect or shift of midline structures. IMPRESSION: Unremarkable CT of the head. MAXILLOFACIAL CT: Orbits are intact without evidence of intraorbital hematoma. No acute fracture or malalignment is identified. There is right and left conchal bullosa without evidence of paranasal sinus air-fluid level. Temporomandibular joints are intact. IMPRESSION: No acute maxillofacial abnormality. Reviewed: Reviewed by Me Departure Impression Primary Impression: Labile hypertension Disposition: HOME, SELF-CARE Condition: Improved Departure-Patient Inst. Decision time for Depature: 23:18 Referrals: RANJEET WINCHESTER DO (PCP/Family) Primary Care Physician Patient Instructions: DASH Diet, High Blood Pressure in Adults Add. Discharge Instructions: HOME, REST NO CAFFEINE, OR ENERGY DRINKS OR ANY STIMULANTS FOLLOW UP WITH YOUR DR THIS WEEK FOR FURTHER CARE RETURN TO ER IF SYMPTOMS WORSEN All discharge instructions reviewed with patient and/or family. Voiced understanding. ANGLELA DALLAS DO Jul 09, 2022 23:19
[2022-07-09 23:24] VITALS: BP 141/87
== END 2022-07-09 23:34 | disposition home or self-care (01) ==
LOC: EDUNIT# 20:59 → ER 21:00
DX: R09.89 Other specified symptoms and signs involving the circulatory and respiratory systems (principal)
CPT/HCPCS: 36415; 70450; 70486; 71045; 80053; 81000; 82550; 82553; 83735; 83874; 84443; 84484; 85025; 85379; 85610; 85652; 85730; 86141; 93005

== ENCOUNTER 2022-11-07 06:02 | Emergency (ER) | payer BC ==
[2022-11-07 06:16] VITALS: BP 156/101
[2022-11-07] MEDS ORDERED: ONDANSETRON 4 MG (ZOFRAN) ORAL DISSOLVE TAB SL STA (06:18)
[2022-11-07] MEDS ORDERED: LIDOCAINE 2% VISCOUS 15 ML UDC PO ONE (06:30)
[2022-11-07] MEDS ORDERED: ANTACID SUSP 30 ML UDC (MYLANTA) PO ONE (06:30)
--- NOTE | 2022-11-07 06:42 | ED Chest Pain ---
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 PATIENT STATES THAT ITS A CONSTANT PRESSURE PAIN JUST BELOW NECK DOWN TO XIPHOID PROCESS. PAIN IS AT A 8/10. PATIENT DENIES NAUSEA, VOMITING, OR OTHER COMPLAINTS. Source: patient, old records Exam Limitations: no limitations History of Present Illness Date Seen by Provider: Nov 07, 2022 Time Seen by Provider: 06:09 Initial Comments This 37-year-old gentleman presents to the emergency room with complaints of a pressure and tightness across his chest that woke him up this morning. He felt vaguely short of breath. He has history of GERD and takes Protonix. He states it hurts to swallow in his upper chest. He denies nausea, vomiting, cough, fever, or chills. He has tenderness across the upper abdomen. He is anxious. He is noted to be hypertensive and reports he recently stopped his lisinopril a few weeks ago. He has prior history of cholecystectomy. Allergies and Home Medications Allergies Coded Allergies: No Known Drug Allergies (Unverified , 10/13/20) Patient Home Medication List Home Medication List Reviewed: Yes Hydrocodone/Acetaminophen (Clinton 7.5-325 Tablet) 1 Each Tablet, 1-2 TAB PO Q4H Prescribed by: LORETO LYNCH on 10/13/20 0939 Pantoprazole Sodium (Pantoprazole Sodium) 40 Mg Tablet.dr, 40 MG PO DAILY, (Reported) Entered as Reported by: AREN WELCH on 10/06/20 1452 Prednisone (Prednisone) 20 Mg Tab, 40 MG PO DAILY Prescribed by: STEVO SAVAGE on 03/31/21 1507 Review of Systems Review of Systems Constitutional: no symptoms reported EENTM: No Symptoms Reported Respiratory: See HPI Cardiovascular: See HPI Gastrointestinal: See HPI Genitourinary: No Symptoms Reported Musculoskeletal: no symptoms reported Skin: no symptoms reported Psychiatric/Neurological: See HPI, Anxiety Endocrine: No Symptoms Reported Hematologic/Lymphatic: No Symptoms Reported Past Awohsri-Earglg-Znpphc Hx Patient Social History Tobacco Use?: No Use of E-Cig and/or Vaping dev: No Substance use?: No Alcohol Use?: No Pt feels they are or have been: No Immunizations Up To Date Influenza Vaccine Up-to-Date: Yes; Up-to-Date First/Initial COVID19 Vaccinat: Second COVID19 Vaccination Silverio: Third COVID19 Vaccination Date: COVID19 Vaccine Quality Control Representative: KENDALL Seasonal Allergies Seasonal Allergies: No Past Medical History Surgeries: Yes (PILONIDAL CYST 2005; ENT SCOPE; EGD 08/2018; RONEY 09/2020 ) Gallbladder Respiratory: No Cardiac: No Neurological: No Reproductive Disorders: Yes (E.D.) Sexually Transmitted Disease: No HIV/AIDS: No Genitourinary: No Gastrointestinal: Yes (ELEVATED LIVER ENZYMES; GASTRITIS) Gastroesophageal Reflux, Hiatal Hernia, Gall Bladder Disease Musculoskeletal: No Endocrine: No HEENT: Yes (PAINFUL SWALLOWING) Loss of Vision: Bilateral Hearing Impairment: Denies Cancer: No Psychosocial: Yes (ANGER ISSUES) Anxiety, Depression Integumentary: No Blood Disorders: No Adverse Reaction/Blood Tranf: No Family Medical History SOCIAL HISTORY: -SMOKING--DENIES USE -ETOH--HISTORY OF ABUSE, CLAIMS NO USE X 6 YEARS, PER PT ON 07/09/22 -DRUGS--DENIES USE Physical Exam Vital Signs Vital Signs - First Documented 11/07/22 06:16 Temp 36.5 Pulse 60 Resp 20 B/P (MAP) 156/101 (119) Pulse Ox 96 O2 Delivery Room Air Capillary Refill : Less Than 3 Seconds Height, Weight, BMI Height: 5'8.00" Weight: 165lbs. 0.0oz. 74.514525mh; 28.00 BMI Method:Stated General Appearance: No Apparent Distress, WD/WN HEENT: PERRL/EOMI, Normal ENT Inspection Neck: Normal Inspection Respiratory: Lungs Clear, Normal Breath Sounds, No Accessory Muscle Use Cardiovascular: Regular Rate, Rhythm, No Edema, No Murmur Gastrointestinal: Normal Bowel Sounds, Soft; No Distended; Tenderness (Mild across the upper abdomen) Extremity: Normal Inspection, No Pedal Edema Neurologic/Psychiatric: Alert, Oriented x3, No Motor/Sensory Deficits, Other (Mildly anxious) Skin: Normal Color, Warm/Dry Progress/Results/Core Measures Results/Orders Lab Results Laboratory Tests Test 11/07/22 07:22 11/07/22 10:02 Range/Units White Blood Count 8.4 4.3-11.0 10^3/uL Red Blood Count 5.11 4.30-5.52 10^6/uL Hemoglobin 16.0 13.3-17.7 g/dL Hematocrit 46 40-54 % Mean Corpuscular Volume 89 80-99 fL Mean Corpuscular Hemoglobin 31 25-34 pg Mean Corpuscular Hemoglobin Concent 35 32-36 g/dL Red Cell Distribution Width 12.0 10.0-14.5 % Platelet Count 288 130-400 10^3/uL Mean Platelet Volume 9.0 9.0-12.2 fL Immature Granulocyte % (Auto) 0 % Neutrophils (%) (Auto) 73 42-75 % Lymphocytes (%) (Auto) 17 12-44 % Monocytes (%) (Auto) 9 0-12 % Eosinophils (%) (Auto) 1 0-10 % Basophils (%) (Auto) 1 0-10 % Neutrophils # (Auto) 6.1 1.8-7.8 10^3/uL Lymphocytes # (Auto) 1.4 1.0-4.0 10^3/uL Monocytes # (Auto) 0.7 0.0-1.0 10^3/uL Eosinophils # (Auto) 0.1 0.0-0.3 10^3/uL Basophils # (Auto) 0.0 0.0-0.1 10^3/uL Immature Granulocyte # (Auto) 0.0 0.0-0.1 10^3/uL Prothrombin Time 13.2 12.2-14.7 SEC INR Comment 1.0 0.8-1.4 Activated Partial Thromboplast Time 29 24-35 SEC Sodium Level 140 135-145 MMOL/L Potassium Level 4.3 3.6-5.0 MMOL/L Chloride Level 106 98-107 MMOL/L Carbon Dioxide Level 25 21-32 MMOL/L Anion Gap 9 5-14 MMOL/L Blood Urea Nitrogen 16 7-18 MG/DL Creatinine 0.97 0.60-1.30 MG/DL Estimat Glomerular Filtration Rate 103 BUN/Creatinine Ratio 16 Glucose Level 112 H 70-105 MG/DL Calcium Level 8.8 8.5-10.1 MG/DL Corrected Calcium 8.8 8.5-10.1 MG/DL Magnesium Level 1.8 1.6-2.4 MG/DL Total Bilirubin 0.4 0.1-1.0 MG/DL Aspartate Amino Transf (AST/SGOT) 27 5-34 U/L Alanine Aminotransferase (ALT/SGPT) 47 0-55 U/L Alkaline Phosphatase 63 40-136 U/L Myoglobin 33.5 10.0-92.0 NG/ML Troponin I < 0.028 < 0.028 <0.028 NG/ML C-Reactive Protein High Sensitivity 0.04 0.00-0.50 MG/DL Total Protein 7.2 6.4-8.2 GM/DL Albumin 4.0 3.2-4.5 GM/DL Lipase 52 8-78 U/L My Orders Orders - PAUL YE MD Ekg Tracing (11/07/22 06:09) Ondansetron Oral Dissolve Tab (Zofran (11/07/22 06:18) Lidocaine 2% Viscous 15 Ml (Xylocaine Vi (11/07/22 06:30) Antacid Suspension (Mylanta Suspension (11/07/22 06:30) Cbc With Automated Diff (11/07/22 06:56) Magnesium (11/07/22 06:56) Chest 1 View, Ap/Pa Only (11/07/22 06:56) Comprehensive Metabolic Panel (11/07/22 06:56) Myoglobin Serum (11/07/22 06:56) Protime With Inr (11/07/22 06:56) Partial Thromboplastin Time (11/07/22 06:56) O2 (11/07/22 06:56) Monitor-Rhythm Ecg Trace Only (11/07/22 06:56) Ed Iv/Invasive Line Start (11/07/22 06:56) Troponin I Michael (11/07/22 06:56) Hs C Reactive Protein (11/07/22 06:56) Lipase (11/07/22 06:56) Nitroglycerin 0.4 Mg Btl 25's (Nitrostat (11/07/22 07:00) Aspirin Chewable Tablet (Baby Aspirin Ch (11/07/22 07:00) Troponin I Michael (11/07/22 09:45) Ketorolac Injection (Toradol Injection) (11/07/22 10:30) Medications Given in ED Current Medications Medications Dose Ordered Sig/Sintia Route Start Time Stop Time Status Last Admin Dose Admin Ketorolac Tromethamine 30 mg ONCE ONCE IVP 2/22/23 10:30 11/07/22 10:31 DC 11/07/22 10:41 30 MG Vital Signs/I&O 11/07/22 06:16 Temp 36.5 Pulse 60 Resp 20 B/P (MAP) 156/101 (119) Pulse Ox 96 O2 Delivery Room Air Blood Pressure Mean: 119 Progress Progress Note #1: Progress Note Patient was interviewed and examined. Due to abdominal symptoms, a trial of Zofran and GI cocktail was administered. This did not resolve his symptoms. Chest pain work-up was therefore pursued. Labs were reviewed which were unremarkable including CBC, CMP, troponin, and lipase. Repeat troponin was also negative. Progress Note #2: Time: 11:22 Progress Note Patient had some improvement with Toradol. Repeat troponin was negative. Because of lingering pain, we discussed opportunity for further evaluation which may include D-dimer. Risks and benefits of obtaining a D-dimer which could be followed by CT angiogram were discussed with the patient. Risks of radiation exposure, cost, and contrast dye exposure were discussed. I did communicate my low suspicion of PE to the patient given lack of risk factors and normal vital signs. Patient ultimately elected to forego PE screening after explanation of risks and benefits. He does understand that without D-dimer or CT angiogram that additional pathology such as PE or a structural abnormality cannot be detected. He will follow-up with his primary care provider and return to the ER if he has worsening symptoms. Initial ECG Impression Date: Nov 07, 2022 Initial ECG Impression Time: 06:12 Initial ECG Rate: 52 Initial ECG Rhythm: Normal Sinus Initial ECG Intervals: Normal Initial ECG Impression: Normal Comment Normal sinus rhythm with no diagnostic ST elevation or depression. The minimal ST changes likely represent early repolarization pattern and are the same as on prior EKG. There are no dynamic changes from prior. No abnormal intervals or axis deviation. EKG was interpreted by me and compared with prior from 2021. Diagnostic Imaging Diagonstic Imaging: Xray Plain Films/CT/US/NM/MRI: chest Comments Chest x-ray was viewed by me and no acute abnormalities were appreciated by my interpretation. Radiologist's report was reviewed as below: NAME: MILLY CAMPBELL [facility] REC#: [id number] PT STATUS: REG ER : 1985 PHYSICIAN: PAUL YE MD ADMIT DATE: 11/07/22/ER Dr ramachandran Date of Exam:11/07/22 CHEST 1 VIEW, AP/PA ONLY EXAMINATION: Chest radiograph, portable AP view. DATE: 11/07/2022 7:24 AM. INDICATION: 37-year-old male, chest pain. COMPARISON: July 09, 2022. FINDINGS: Heart size and mediastinal contours are unchanged. There is no identified pneumothorax. There is no large pleural effusion. There is no identified focal airspace consolidation. IMPRESSION: No identified acute cardiopulmonary abnormality. Dictated on workstation # [id number] Dict: 11/07/22 0726 Trans: 11/07/22 0735 [id number] Interpreted by: SAYDA EAST MD Departure Impression Primary Impression: Atypical chest pain Additional Impression: Upper abdominal pain Disposition: HOME, SELF-CARE Condition: Improved Departure-Patient Inst. Decision time for Depature: 11:19 Referrals: RANJEET WINCHESTER DO (PCP/Family) Primary Care Physician Patient Instructions: Chest Pain That Is Not Caused by the Heart (DC) Add. Discharge Instructions: Based on your work-up in the emergency room and your clinical history, it is unlikely your chest pain is related to a cardiac condition. Based on your history of acid reflux and tenderness in your abdomen, there may be a gastrointestinal component to your pain. Continue taking pantoprazole as previously prescribed. You may add Pepcid (famotidine) 20 mg twice daily to your pantoprazole treatment for a few weeks. For pain you may take Tylenol (acetaminophen) up to 1000 mg every 6 hours as needed. Add ibuprofen up to 600 mg every 6 hours as needed for additional pain relief. Take ibuprofen with food or milk to avoid upset stomach. Return to care if you have worsening symptoms such as escalating pain, worsening shortness of breath, lightheadedness, fevers, vomiting, etc. Please follow-up with your primary care provider as soon as possible for further evaluation and discussion. All discharge instructions reviewed with patient and/or family. Voiced understanding. Copy Copies To 1: RANJEET WINCHESTER JOSHUA T MD Nov 07, 2022 06:42
[2022-11-07] MEDS ORDERED: NITROGLYCERIN 0.4 MG SL TABS BTL 25'S SL PRN (07:00)
[2022-11-07] MEDS ORDERED: ASPIRIN 81 MG CHEW (CHILDREN'S ASA) PO ONE (07:00)
[2022-11-07 07:30] LABS: BASOPHILS % (AUTO) 1 % (0-10); EOSINOPHILS # (AUTO) 0.1 10^3/uL (0.0-0.3); EOSINOPHILS % (AUTO) 1 % (0-10); HEMATOCRIT 46 % (40-54); LYMPHOCYTES # (AUTO) 1.4 10^3/uL (1.0-4.0); LYMPHOCYTES % (AUTO) 17 % (12-44); MEAN CORPUSCULAR HEMOGLOBIN 31 pg (25-34); MEAN CORPUSCULAR HGB CONC 35 g/dL (32-36); MEAN CORPUSCULAR VOLUME 89 fL (80-99); MONOCYTES # (AUTO) 0.7 10^3/uL (0.0-1.0); MONOCYTES % (AUTO) 9 % (0-12); NEUTROPHILS # (AUTO) 6.1 10^3/uL (1.8-7.8); NEUTROPHILS % (AUTO) 73 % (42-75); PLATELET COUNT 288 10^3/uL (130-400); WHITE BLOOD COUNT 8.4 10^3/uL (4.3-11.0)
--- NOTE | 2022-11-07 07:35 | Diagnostic Imaging Report ---
EXAMINATION: Chest radiograph, portable AP view. DATE: 11/07/2022 7:24 AM. INDICATION: 37-year-old male, chest pain. COMPARISON: July 09, 2022. FINDINGS: Heart size and mediastinal contours are unchanged. There is no identified pneumothorax. There is no large pleural effusion. There is no identified focal airspace consolidation. IMPRESSION: No identified acute cardiopulmonary abnormality. Dictated by: Dictated on workstation # [id number]
[2022-11-07 07:41] LABS: POTASSIUM 4.3 MMOL/L (3.6-5.0)
[2022-11-07 07:42] LABS: CALCIUM 8.8 MG/DL (8.5-10.1); PROTHROMBIN TIME PATIENT 13.2 SEC (12.2-14.7)
[2022-11-07 07:43] LABS: TOTAL PROTEIN 7.2 GM/DL (6.4-8.2)
[2022-11-07 07:45] LABS: BILIRUBIN,TOTAL 0.4 MG/DL (0.1-1.0)
[2022-11-07 07:47] LABS: CREATININE SERUM 0.97 MG/DL (0.60-1.30)
[2022-11-07 07:49] LABS: MAGNESIUM 1.8 MG/DL (1.6-2.4)
[2022-11-07 08:12] LABS: LIPASE 52 U/L (8-78)
[2022-11-07] MEDS ORDERED: KETOROLAC 30 MG/ML VIAL IVP ONE (10:30)
== END 2022-11-07 11:43 | disposition home or self-care (01) ==
LOC: EDUNIT# 06:02 → ER 06:04
DX: R07.89 Other chest pain (principal); R10.10 Upper abdominal pain, unspecified; Z87.19 Personal history of other diseases of the digestive system; Z79.899 Other long term (current) drug therapy; Z90.49 Acquired absence of other specified parts of digestive tract
CPT/HCPCS: 36415; 71045; 80053; 83690; 83735; 83874; 84484; 85025; 85610; 85730; 86141; 93005; 93041

== ENCOUNTER → 2022-12-11 | Outpatient (CLI) | payer BC | LOC: SLEEP 12:39 | PROVIDERS: ATTEND Otolaryngology Otolaryngology/Facial Plastic Surgery | DX: G47.33 Obstructive sleep apnea (adult) (pediatric) (principal) ==